=== PATIENT | female | born 1955 | race Caucasian/White ===

== ENCOUNTER 2022-11-11 11:20 | Inpatient (IN) | payer MEDICARE, MEDICAID, SELFPAY ==
[2022-11-11] VITALS (26 sets, daily range): BP systolic 138–203; BP diastolic 70–118; PULSE 90–109; RESP 14–20; TEMP 36.4–36.9; O2SAT 94–99; BMI 18.6
--- NOTE | ~2022-11-11 | XR_ITS ---
EXAMINATION: XR chest 1V portable DATE: 11/11/2022 12:26 INDICATION: Weakness. Dizziness. TECHNIQUE: A single frontal view of the chest was obtained. COMPARISON: None. FINDINGS: The chest demonstrates clear lungs without pneumonia, pleural effusion, or pneumothorax. Th e heart size is normal. IMPRESSION: 1. No acute cardiopulmonary disease. Reviewed, dictated and finalized at location A. NG ERECTOR
--- NOTE | ~2022-11-11 | CT_ITS ---
EXAMINATION: CTA brain carotid DATE: 11/11/2022 17:40 INDICATION: dizziness TECHNIQUE: Computed tomographic angiography (CTA) of the head was performed without and with 100 mL O mnipaque-350 intravenous contrast. CTA of the neck was performed with intravenous contrast. Automated exposure control and iterative reconstruction technique were employed. The dose-length product was 1 585.16 mGy-cm. Maximum intensity projection and volume rendered 3D-reconstructions were created by dominique sarkar technologist on a separate workstation. COMPARISON: None. FINDINGS: CT BRAIN: No acute large vessel infarct, intracranial hemorrhage, mass, or hydrocephalus. Mild atrophy and tub rider renetta white matter change. Atherosclerotic intracranial calcification. CTA HEAD: No large vessel occlusion, aneurysm, high flow vascular malformation, nidus or extravasation. The ant erior and posterior communicating arteries are patent. Short segment mild stenosis in the intradural portion of the distal left vertebral artery. Patent cerebral veins. Symmetric parenchymal enhancement . CTA NECK: Aortic arch and proximal great vessels: Mild atherosclerotic calcifications at the visualized aortic arch and proximal great vessels. Right common carotid, carotid bifurcation, and internal carotid artery: Mild calcified plaque at the bifurcation.There is 0% stenosis of the proximal right internal carotid artery relative to normal dis kul[place] artery lumen diameter (NASCET criteria). Left common carotid, carotid bifurcation, and internal carotid artery: Mild calcified plaque at the b ifurcation.There is 0% stenosis of the proximal left internal carotid artery relative to normal dista l artery lumen diameter (NASCET criteria). Vertebral arteries: No significant plaque or stenosis. Direct origin of the left vertebral artery off the aortic arch, which is obscured by beam hardening artifact and not evaluated. Right vertebral art woody is dominant. Other findings: Multiple thyroid nodules. Biapical pleural scarring. Degenerative changes in the cerv ical spine. IMPRESSION: 1. No large vessel occlusion. 2. No severe carotid or vertebral artery stenosis, noting the origin of the left vertebral artery is obscured. 3. Multiple thyroid nodules, recommend nonemergent, outpatient thyroid ultrasound for further charact erization. Reviewed, dictated and finalized at location K. EL MANAGER IMPRESSION: 1. No large vessel occlusion. 2. No severe carotid or vertebral artery stenosis, noting the origin of the lef t vertebral artery is obscured. 3. Multiple thyroid nodules, recommend nonemergent, outpatient thyroid ultrasou nd for further characterization.
--- NOTE | ~2022-11-11 | US_ITS ---
US renal BI 11/11/2022 23:43 Procedure: Realtime transabdominal ultrasound of the kidneys and bladder. Indication: History of kidney surgery. Kidney nodules. Comparison: No prior studies for comparison. Findings: Renal echotexture is normal bilaterally without hydronephrosis, contour deforming mass or r enal calculus. Left kidney has an atypical appearance, although there is no mass or hydronephrosis. T he right kidney measures 10.6 cm and left kidney measures 7.6 cm. Bladder within normal limits. Ther e is hepatic steatosis. Impression: 1: Unremarkable renal ultrasound. No stones, masses or hydronephrosis. Reviewed, dictated and finalized at location A. SALES REPRESENTATIVE Impression: 1: Unremarkable renal ultrasound. No stones, masses or hydronephrosis.
--- NOTE | ~2022-11-11 | US_ITS ---
EXAMINATION: US thyroid DATE: 11/11/2022 23:43 INDICATION: Thyroid nodules. TECHNIQUE: Multiple ultrasound images of the thyroid were obtained. COMPARISON: Neck CTA 11/11/2022 FINDINGS: The right thyroid lobe measures 5.0 x 3.7 x 2.1 cm. The left thyroid lobe measures 4.5 x 1.4 x 1.3 c m. In the left thyroid lobe, there is an 11 mm solid, hyperechoic, wider than tall nodule with hillary h margin without echogenic foci (TI-RADS TR3). There are ill-defined nodules of similar ultrasound ap pearance throughout the right thyroid lobe and thyroid isthmus without normal intervening parenchyma. IMPRESSION: 1. Multinodular goiter, likely not clinically significant. Reviewed, dictated and finalized at location A. COMMUNITY MANAGER
--- NOTE | 2022-11-11 11:34 | ECG_ITS ---
Measurements Intervals [place] Rate: 103 P: 76 MS: 138 QRS: 48 QRSD: 81 T: 79 QT: 345 QTc: 454 Interpretive Statements SINUS TACHYCARDIA POSSIBLE LEFT ATRIAL ENLARGEMENT [-0.1mV P-WAVE IN V1/V2] LOW QRS VOLTAGE IN PRECORDIAL LEADS [QRS DEFLECTION < 1.0 mV IN CHEST LEADS] NONSPECIFIC ST AND T-WAVE ABNORMALITY ABNORMAL RHYTHM ECG NO PREVIOUS ECG AVAILABLE FOR COMPARISON Electronically Signed On 11-11-2022 16:24:33 NUCLEAR SUPERVISING OPERATOR by Megan Grace M.D.
[2022-11-11 12:13] LABS: Basophils Absolute Auto 0.1 K/mm3 (0.0-0.1); Basophils Percent Auto 0.9 % (0.2-1.2); Eosinophils Absolute Auto 0.2 K/mm3 (0-0.3); Eosinophils Percent Auto 1.7 % (0-4.4); Hematocrit 40.4 % (37.0-47.0); Hemoglobin 14.1 g/dL (12.0-15.0); Immature Granulocyte Absolute 0.04 K/mm3 (0.00-0.031); Immature Granulocyte Percent A 0.3 % (0-0.5); Lymphocytes Absolute Auto 4.05 K/mm3 (0.9-3.2); Lymphocytes Percent Auto 32.5 % (18.3-44.2); Mean Corpuscular HGB Conc 34.9 g/dl (32-36); Mean Corpuscular Hemoglobin 30.4 pg (26-34); Mean Corpuscular Volume 87.1 fl (80-100); Monocytes Absolute Auto 1.1 K/mm3 (0.1-0.6); Monocytes Percent Auto 8.6 % (2.6-8.5); Platelet Count Result 385 k/mm3 (150-375); Red Blood Count 4.64 M/mm3 (4.2-5.4); Red Cell Distribution Width 12.8 % (11.5-14.5); White Blood Count 12.5 K/mm3 (4.5-10.0)
[2022-11-11 12:25] LABS: Alanine Aminotransferase 22 U/L (6-35); Albumin Level 4.2 g/dL (3.5-5.1); Alkaline Phosphatase 96 U/L (38-126); Anion Gap 7 mmol/L (8-16); Aspartate Amino Transferase 19 U/L (14-36); Bilirubin,Total 0.4 mg/dL (0.2-1.3); Blood Urea Nitrogen 16 mg/dL (7-17); Calcium 8.5 mg/dL (8.4-10.2); Carbon Dioxide 28 mmol/L (22-30); Chloride 98 mmol/L (98-107); Estimated CRCL calculation 66 ml/min; Estimated Glomerular Filt Rate > 60; Glucose 244 mg/dL (65-110); Potassium 3.5 mmol/L (3.4-5.0); Sodium 133 mmol/L (137-145)
[2022-11-11] MEDS: MORPHINE SULFATE (*CRX) 2 MG/ML INJ IV PUSH (12:53)
[2022-11-11 12:55] LABS: INR 1.1; Prothrombin Time 13.3 Seconds (11.1-14.7)
[2022-11-11 12:56] LABS: Partial Thromboplastin Time 32.4 SECONDS (22.3-36.8)
[2022-11-11 13:03] LABS: Appearance Urine Clear (Clear); Bilirubin Urine Negative (Negative); Blood Urine Trace-intact (Negative); Color Urine Yellow (Yellow); Glucose Urine UA Trace mg/dL (Negative); Ketones Urine Negative (Negative); Leukocyte Esterase Ur 1+ LEU/UL (Negative); Nitrate Urine Negative (Negative); Protein Urine 1+ mg/dL (Negative); Specific Grav Ur 1.015 (1.001-1.035); pH Urine 5.5 (5.0-9.0)
[2022-11-11 13:06] LABS: Troponin I < 0.012 ng/mL (0.000-0.034)
[2022-11-11 13:07] LABS: Mucus Urine Rare /lpf; RBC Urine 0-2 /hpf (0-2); WBC Urine 16-20 /hpf
[2022-11-11 13:15] LABS: Add Urine Microscopic? YES
[2022-11-11 13:15] LABS: Influenza A QL RT-PCR Negative (Negative); Influenza B QL RT-PCR Negative (Negative); SARS-CoV-2 RNA PCR Negative
--- NOTE | 2022-11-11 14:21 | ED.GENADULT ---
HPI - General Adult General Chief complaint: Dizziness Stated complaint: dizzy lightheaded, pain to upper back & arms Time Seen by Provider: 11/11/22 11:58 History of Present Illness HPI narrative: Patient is a 67-year-old female who presents ER with multiple complaints. Patient is blind and dependent on home health for her care. She has been having newly elevated blood pressures over the last couple of days. Has been associated with back pain and arm pain. No chest discomfort. No difficulty breathing. She is also had some lightheadedness and dizziness. She has some discomfort in her left ear and she has been trying to clean wax out of it. Denies fevers or chills or sweats. No loss of consciousness. No falls. Patient is not on any blood pressure medication at home. She is unsure what her blood sugars have been running as her home health care does not know how to use her glucometer and she is unable to read it. Pain in the back and arms is achy. Is not associate with exertion. It is not a typical pain for her. Usually her chronic pain is in her low back and legs. She has had no relief with oral [id number]-ootdtuz pain relievers. Related Data Home Medications Medication Instructions Recorded Confirmed clopidogrel 75 mg tablet 75 mg PO DAILY 11/11/22 11/11/22 docusate sodium 100 mg capsule 100 mg PO DAILY 11/11/22 11/11/22 metformin 500 mg tablet 500 mg PO BID 11/11/22 11/11/22 omeprazole 20 mg capsule,delayed 20 mg PO BID 11/11/22 11/11/22 release pravastatin 40 mg tablet See Rx Instructions .Route .COMPLEX 11/11/22 11/11/22 Allergies Allergy/AdvReac Type Severity Reaction Status Date / Time strawberry Allergy Unknown Verified 11/11/22 11:36 tramadol Allergy Unknown Verified 11/11/22 11:36 Review of Systems Review of Systems: All systems reviewed & are unremarkable except as noted in HPI and below Constitutional: Constitutional: Denies chills, Denies fatigue and Denies fever(s) ENT: Reports dizziness, Denies nasal congestion and Denies sore throat Comments: Left ear fullness Cardiovascular: Cardiovascular: Denies chest pain, Denies rapid heart rate and Denies radiating jaw, neck or arm pain Respiratory: Respiratory: Denies cough and Denies dyspnea Gastrointestinal: Gastrointestinal: Denies abdominal pain, Denies nausea and Denies vomiting Musculoskeletal: Musculoskeletal: Reports back pain Comments: Arm pain PMFSH Past Medical History Medical History (Updated 11/11/22 @ 21:57 by Zachary Esteban MD) Anxiety Blind Cataract DM2 (diabetes mellitus, type 2) H/O irritable bowel syndrome mixed HTN (hypertension) with goal to be determined Hx of deep venous thrombosis Kidney tumor Seizures TIA (transient ischemic attack) Tobacco abuse Surgical History Surgical History (Updated 11/11/22 @ 16:59 by Elsie Blum NP) H/O colonoscopy with polypectomy History of kidney surgery Family History Family History (Updated 11/11/22 @ 17:01 by Elsie Blum NP) Mother Hypertension Diabetes mellitus Acute myocardial infarction Father Acute myocardial infarction Kidney malignancy Son Acute myocardial infarction Diabetes mellitus Heart disease Daughter Deaf Social History Social History (Updated 11/11/22 @ 20:59 by Elsie Blum NP) Social History: 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 She is and has 2 children. She is Diabled. She continues to smoke approximately half a pack a cigarettes a day. Code status full code Smoking packs per day: 0.5 Smoking cigarettes per day: 10.0 Years smoked: 15 Smoking pack-years: 7.50 Smoking status: Light tobacco smoker Tobacco type: cigarettes Second hand tobacco smoke exposure: No Alcohol intake: never Substance use: never Lack of Transportation: No Lack of Food: Never True Current Housing: I Have Housing Concerned About Future Housing: No Difficulty Paying Gas/Electric Bi
[2022-11-11] MEDS: hydrALAZINE HCL 20 MG/ML VIAL 10 MG IV PUSH (14:28)
[2022-11-11] MEDS: fentaNYL CITRATE INJ (*CRX) 100 MCG/2 ML VIAL 50 MCG IV PUSH ×2 (15:16→22:54)
--- NOTE | 2022-11-11 16:19 | PC.NURSE ---
Dinner order placed for patient
--- NOTE | 2022-11-11 16:47 | PM.IMHP ---
H&P: [facility] History of Present Illness Date/Time: 11/11/22 16:47 Chief Complaint: Dizziness Narrative: This is a 67-year-old female patient who stated that she used to have hypertension and no longer is on any medication. The patient is legally blind and stated that she is supposed to have her cataracts removed but cannot had the Imuran move due to her elevated blood pressure. The patient is dependent on home health 7 days a week for several hours a day. The daughter is at the bedside who is deaf and is helping with the patient. The patient has been having elevated blood pressure over the last couple weeks. The patient has also been having some back pain and arm pain which may be the cause of her elevated blood pressure. The patient has some lightheadedness and dizziness. However I did help ambulate her to the bathroom without difficulty. Patient is not been on any blood pressure medication at home. The patient does not remember the name of her home medication that she used to be on for blood pressure. The patient has not been able to check her blood sugars because the home health care was not able to operate her glucometer. Patient has been complaining of achiness. This is her usual chronic pain. In her lower back and legs. The patient has had no relief with mshn-cbr-nbzembm pain medication. Her initial blood pressure was 192/99 and went up to 203/116. The patient stated that she is legally blind due to her cataracts. The patient was given morphine, hydralazine, fentanyl and she was started on Rocephin for UTI. Her white count is 12.5. And sodium is 133. Glucose was 221. Urine HEENT reveals 1+ leukocyte esterase and 16-20 wbc's. The patient was negative for influenza A/B and COVID. Head neck CTA was read as the followingNo large vessel occlusion. 2. No severe carotid or vertebral artery stenosis, noting the origin of the left vertebral artery is obscured. 3. Multiple thyroid nodules, recommend nonemergent, outpatient thyroid ultrasound for further characterization. Chest x-ray was read as no acute cardiopulmonary disease. The patient is being admitted to observation status on the date of service of 11/11/2022. Review of Systems Review of Systems: See [facility] Past Medical History Medical History (Updated 11/11/22 @ 21:09 by Elsie A. Benhoff, ORTHO/PROSTHETIC AIDE) Anxiety Blind Cataract DM2 (diabetes mellitus, type 2) H/O irritable bowel syndrome mixed HTN (hypertension) with goal to be determined Hx of deep venous thrombosis Kidney tumor Seizures TIA (transient ischemic attack) Tobacco abuse Surgical History Surgical History (Updated 11/11/22 @ 16:59 by Elsie Blum NP) H/O colonoscopy with polypectomy History of kidney surgery Family History Family History (Updated 11/11/22 @ 17:01 by Elsie Blum NP) Mother Hypertension Diabetes mellitus Acute myocardial infarction Father Acute myocardial infarction Kidney malignancy Son Acute myocardial infarction Diabetes mellitus Heart disease Daughter Deaf Social History Social History (Updated 11/11/22 @ 20:59 by Elsie Blum NP) Social History: 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 She is and has 2 children. She is Diabled. She continues to smoke approximately half a pack a cigarettes a day. Code status full code Smoking packs per day: 0.5 Smoking cigarettes per day: 10.0 Years smoked: 15 Smoking pack-years: 7.50 Smoking status: Light tobacco smoker Tobacco type: cigarettes Second hand tobacco smoke exposure: No Alcohol intake: never Substance use: never Lack of Transportation: No Lack of Food: Never True Current Housing: I Have Housing Concerned About Future Housing: No Difficulty Paying Gas/Electric Bills: No Difficulty Paying for Meds: No Currently Unemployed: No Education: Decline to Answer Difficulty w/ Childcare or Family Care: No Spiritual care concerns: No Meds
[2022-11-11] MEDS: ONDANSETRON INJ 4 MG/2 ML VIAL IV PUSH ×2 (17:10→22:56)
--- NOTE | 2022-11-11 17:18 | PC.NURSE ---
Pt to CT
--- NOTE | 2022-11-11 17:59 | ADMGEN ---
Addendum entered by Su Lamb RN 11/11/22 18:14: pt is BLIND Original Note: This patient, Caitlyn Davis, was admitted to IMU Room 209-01 from ER. pt vomiting upon arrival to floor- clear emesis. Patient/ oriented to hospital policies and general routines including ID bracelet, bed and alarms, visiting hours, pain management, procedures, bathroom and other care routines, personal items, smoking policy, room service/diet, and visiting hours. Information on how to activate the Rapid Response Team has been discussed. Patient/are encouraged to report perceived risks to care and to ask questions if they do not understand what they are told or what they should do.
[2022-11-11 20:03] LABS: Glucose Point of Care 221 mg/dl (65-105)
[2022-11-11] MEDS: PANTOPRAZOLE 40 MG TABLET PO (22:57)
[2022-11-11] MEDS: PRAVASTATIN SODIUM 20 MG TABLET 40 MG BY MOUTH (22:57)
[2022-11-12] VITALS (13 sets, daily range): BP systolic 111–156; BP diastolic 50–82; PULSE 92–116; RESP 14–20; TEMP 36.5–36.9; O2SAT 94–99
--- NOTE | 2022-11-12 | ECHO_ITS ---
Patient Info Name: Caitlyn Davis Age: 67 years : 1955 Gender: Female Ht: 67 in Wt: 141 lbs BSA: 1.74 m2 HR: 90 bpm BP: 134 / 66 mmHg Heart Rhythm: Sinus Rhythm Technical Quality: Poor Exam Date: 11/12/2022 12:44 PM Exam Location: [facility] Patient Status: Outpatient Admit Date: 11/11/2022 Staff Ordering Physician: Elsie Blum NP Leather Stamper: Mariam Suh RDCS Attending Provider: Kisha Hanna DO Referring Physician: Viktoria DUARTE; Exam Type: CA echo doppler w bubble study Study Info Indications - dizziness Complete two-dimensional, color flow and Doppler transthoracic echocardiogram is performed with agitated saline. Contrast/Agitated Saline Contrast/Ag. Saline: Agitated Saline Amount: 30.00 ml Administered By: Mariam Suh RDCS Existing IV Access: Yes IV Access Condition: patent with no signs of infiltration Summary 1. Left ventricular chamber dimension is normal. 2. Left ventricular systolic function is hyperdynamic, estimated at >70%. 3. Right ventricular systolic function is normal. 4. There is trace mitral valve regurgitation. 5. There is trace tricuspid valve regurgitation. 6. Normal inferior vena cava with <50% collapse upon inspiration consistent with normal right atrial pressure, 3 mmHg. Left Ventricle Left ventricular chamber dimension is normal. Left ventricular systolic function is hyperdynamic, estimated at >70%. There is no increased left ventricular wall thickness. Right Ventricle Right ventricular chamber dimension is normal. Right ventricular systolic function is normal. Left Atria Left atrial chamber dimension is normal. Right Atria Right atrial chamber dimension is normal. Atrial Septum Intact interatrial septum visualized by color flow and agitated saline imaging. Aortic Valve The aortic valve is not well visualized. There is no aortic valve stenosis. There is no aortic valve regurgitation. Pulmonic Valve The pulmonic valve is not well visualized. Mitral Valve There is trace mitral valve regurgitation. Tricuspid Valve There is trace tricuspid valve regurgitation. Pericardium/Pleural The pericardium appears epicardial fat pad. There is no pericardial effusion. Inferior Vena Cava Normal inferior vena cava with <50% collapse upon inspiration consistent with normal right atrial pressure, 3 mmHg. Aorta The aortic root size at the sinus of Valsalva is normal. Left Ventricular Outflow Tract Name Value Normal LVOT 2D LVOT Diameter 2.0 cm LVOT Doppler LVOT Peak Gradient 3 mmHg LVOT Mean Gradient 2 mmHg LVOT VTI 17 cm LVOT VTI/AV VTI Ratio 0.9 LVOT Stroke Volume 51 ml LVOT CO 4.8 l/min LVOT CI 2.8 l/min/m2 Pulmonic Valve Name
[2022-11-12] MEDS: LORazepam INJ (*CRX) 2 MG/ML VIAL 0.5 MG IV PUSH (03:50)
[2022-11-12 05:04] LABS: Basophils Absolute Auto 0.1 K/mm3 (0.0-0.1); Basophils Percent Auto 0.5 % (0.2-1.2); Eosinophils Percent Auto 0.1 % (0-4.4); Hematocrit 36.4 % (37.0-47.0); Hemoglobin 12.5 g/dL (12.0-15.0); Immature Granulocyte Absolute 0.07 K/mm3 (0.00-0.031); Immature Granulocyte Percent A 0.4 % (0-0.5); Lymphocytes Absolute Auto 2.13 K/mm3 (0.9-3.2); Lymphocytes Percent Auto 12.4 % (18.3-44.2); Mean Corpuscular HGB Conc 34.3 g/dl (32-36); Mean Corpuscular Hemoglobin 29.9 pg (26-34); Mean Corpuscular Volume 87.1 fl (80-100); Mean Platelet Volume 9.1 fl (7.4-10.4); Monocytes Percent Auto 5.9 % (2.6-8.5); Neutrophils Absolute Auto 13.8 K/mm3 (1.3-6.7); Neutrophils Percent Auto 80.7 % (45.5-73.1); Platelet Count Result 378 k/mm3 (150-375); Red Blood Count 4.18 M/mm3 (4.2-5.4); Red Cell Distribution Width 13.1 % (11.5-14.5); White Blood Count 17.1 K/mm3 (4.5-10.0)
[2022-11-12 05:13] LABS: Alanine Aminotransferase 18 U/L (6-35); Albumin Level 3.9 g/dL (3.5-5.1); Alkaline Phosphatase 83 U/L (38-126); Anion Gap 6 mmol/L (8-16); Aspartate Amino Transferase 18 U/L (14-36); Bilirubin,Total 0.5 mg/dL (0.2-1.3); Blood Urea Nitrogen 21 mg/dL (7-17); Calcium 8.2 mg/dL (8.4-10.2); Carbon Dioxide 31 mmol/L (22-30); Chloride 96 mmol/L (98-107); Estimated CRCL calculation 58 ml/min; Estimated Glomerular Filt Rate > 60; Glucose 199 mg/dL (65-110); Magnesium 1.2 mg/dL (1.6-2.3); Potassium 3.4 mmol/L (3.4-5.0); Sodium 133 mmol/L (137-145)
[2022-11-12 05:16] LABS: Lactic Acid Reflex 1.2 mmol/L (0.7-2.0)
[2022-11-12 05:19] LABS: Hemoglobin A1C 7.2 % (<5.7)
[2022-11-12 06:15] LABS: Thyroid Stimulating Hormone Reflex 0.295 uIU/mL (0.465-4.68)
[2022-11-12 07:38] LABS: Free T4 Free Thyroxine Reflex 1.26 ng/dL (0.78-2.19)
[2022-11-12 08:03] LABS: Glucose Point of Care 199 mg/dl (65-105)
[2022-11-12 08:27] LABS: Total Triiodothyronine (T3) 0.97 NG/ML (0.97-1.69)
[2022-11-12] MEDS: PANTOPRAZOLE 40 MG TABLET PO ×2 (08:51→21:24)
[2022-11-12] MEDS: lisinopriL 10 MG TABLET PO (08:52)
[2022-11-12] MEDS: DOCUSATE SODIUM 100 MG CAPSULE PO (08:52)
[2022-11-12] MEDS: CLOPIDOGREL BISULFATE 75 MG TABLET PO (08:52)
[2022-11-12] MEDS: ACETAMINOPHEN/ASPIRIN/CAFFEINE 250-250-65 MG TABLET 1 TABLET PO (11:49)
[2022-11-12 12:42] LABS: Glucose Point of Care 234 mg/dl (65-105)
[2022-11-12] MEDS: HYDROcodone/acetaminophen (*CRX) 5-325 MG TABLET 1 TAB PO ×2 (15:23→21:23)
--- NOTE | 2022-11-12 15:42 | PM.IMPN ---
Progress Note: A&P Assessment and Plan (1) Dizziness: Code(s): R42 - Dizziness and giddiness Status: Acute Assessment and Plan: Head neck CTA shows no large vessel occlusion. No severe carotid or vertebral artery stenosis noting the origin of left vertebral artery is obscured. P.r.n. meclizine I did ambulate the patient and she seemed to do well although she is legally blind she needed much assistance and guidance. -check orthostatic blood pressures Q shift. 11/12/2022 interval history: patient is legally blind in both eyes, and hard of hearing, patient davide who is present has also difficulty hearing however she can read lips, upon arrival patient BP was elevated and c/o body aches and generalized pain, unfortunately patient unable to provide detailed review of symptoms or history, presented with complaint of dizziness, CTA of head and carotid ultrasound are negative for any stenosis, patient urine is suspicious for UTI patient is being treated with ceftriaxone, will PT OT evaluate the patient. (2) Thyroid nodule: Code(s): E04.1 - Nontoxic single thyroid nodule Status: Acute Assessment and Plan: -ultrasound of the thyroid has been ordered. (3) HTN (hypertension) with goal to be determined: Code(s): I10 - Essential (primary) hypertension Status: Acute Assessment and Plan: The patient stated that she had been on hypertensive medication in the past and cannot recall the name of it. -I did start the patient on lisinopril as her renal functions are within normal limits. -she has p.r.n. hydralazine as well. The patient's blood pressure did come down nicely today with the hydralazine. (4) Seizures: Code(s): R56.9 - Unspecified convulsions Status: Acute Assessment and Plan: The patient is not currently on any seizure medication. Patient stated that she did have a seizure 1 time. (5) Cataract: Code(s): H26.9 - Unspecified cataract Status: Acute Assessment and Plan: The patient is legally blind due to her cataracts. The patient stated that she cannot have the removed until her blood pressure comes down. (6) TIA (transient ischemic attack): Code(s): G45.9 - Transient cerebral ischemic attack, unspecified Status: Acute Assessment and Plan: Continue with her Plavix. (7) DM2 (diabetes mellitus, type 2): Code(s): E11.9 - Type 2 diabetes mellitus without complications Status: Acute Assessment and Plan: I am holding metformin at this time. -check A1c -Accu-Cheks AC and HS with sliding scale insulin and hypoglycemic protocol. (8) Tobacco abuse: Code(s): Z72.0 - Tobacco use Status: Acute Assessment and Plan: We discussed smoking cessation for approximately 5 minutes. I did offer her nicotine patch which she declined at this time. (9) Anxiety: Code(s): F41.9 - Anxiety disorder, unspecified Status: Acute Assessment and Plan: -the patient stated that she is anxious at times. She was ordered IV Ativan. (10) Kidney tumor: Code(s): D49.519 - Neoplasm of unspecified behavior of unspecified kidney Status: Acute Assessment and Plan: The patient has a history of having surgery to remove a portion of her kidney. The patient has nodules on the left side of her lower back. (11) UTI (urinary tract infection): Code(s): N39.0 - Urinary tract infection, site not specified Status: Acute Assessment and Plan: The patient was started on Rocephin. -blood and urine cultures are pending -tailor antibiotics to results of cultures. (12) Blind: Code(s): H54.7 - Unspecified visual loss Status: Acute Assessment and Plan: The patient stated that she is legally blind due to the cataracts. Plan The patient has chronic lower back pain. Subjective Date/time seen: 11/12/22 15:42 Dizziness HPI-Narrative: This is a
[2022-11-12] MEDS: INSULIN ASPART (*BKC) 100 UNITS/ML SUB-Q (16:51)
[2022-11-12 16:53] LABS: Glucose Point of Care 234 mg/dl (65-105)
[2022-11-12] MEDS: PRAVASTATIN SODIUM 20 MG TABLET 40 MG BY MOUTH (17:02)
--- NOTE | 2022-11-12 18:19 | PC.NURSE ---
Transferred to room 241 vi abed accomapnied by staff- belongings with pt -report given to Alec RN- daughter danna called and notified of transfer
[2022-11-12 22:33] LABS: Glucose Point of Care 202 mg/dl (65-105)
[2022-11-13] MEDS: HYDROcodone/acetaminophen (*CRX) 5-325 MG TABLET 1 TAB PO ×4 (05:55→20:30)
[2022-11-13 06:00] VITALS: BP 133/67; PULSE 88; RESP 18; TEMP 36.2; O2SAT 96
[2022-11-13] MEDS: ONDANSETRON INJ 4 MG/2 ML VIAL IV PUSH (06:03)
[2022-11-13 06:05] VITALS: BP 119/60; PULSE 91; RESP 20; TEMP 36.1; O2SAT 99
[2022-11-13 06:12] LABS: Basophils Absolute Auto 0.1 K/mm3 (0.0-0.1); Basophils Percent Auto 0.7 % (0.2-1.2); Eosinophils Absolute Auto 0.2 K/mm3 (0-0.3); Eosinophils Percent Auto 1.8 % (0-4.4); Hematocrit 33.3 % (37.0-47.0); Hemoglobin 11.2 g/dL (12.0-15.0); Immature Granulocyte Absolute 0.04 K/mm3 (0.00-0.031); Immature Granulocyte Percent A 0.3 % (0-0.5); Lymphocytes Absolute Auto 5.47 K/mm3 (0.9-3.2); Lymphocytes Percent Auto 44.4 % (18.3-44.2); Mean Corpuscular HGB Conc 33.6 g/dl (32-36); Mean Corpuscular Hemoglobin 29.7 pg (26-34); Mean Corpuscular Volume 88.3 fl (80-100); Mean Platelet Volume 9.1 fl (7.4-10.4); Monocytes Absolute Auto 0.9 K/mm3 (0.1-0.6); Monocytes Percent Auto 7.4 % (2.6-8.5); Neutrophils Absolute Auto 5.6 K/mm3 (1.3-6.7); Neutrophils Percent Auto 45.4 % (45.5-73.1); Platelet Count Result 383 k/mm3 (150-375); Red Blood Count 3.77 M/mm3 (4.2-5.4); Red Cell Distribution Width 12.8 % (11.5-14.5); White Blood Count 12.3 K/mm3 (4.5-10.0)
[2022-11-13 06:21] LABS: Potassium 3.3 mmol/L (3.4-5.0)
[2022-11-13 06:25] LABS: Anion Gap 2 mmol/L (8-16); Blood Urea Nitrogen 21 mg/dL (7-17); Carbon Dioxide 32 mmol/L (22-30); Chloride 97 mmol/L (98-107); Estimated CRCL calculation 46 ml/min; Estimated Glomerular Filt Rate > 60; Glucose 166 mg/dL (65-110); Magnesium 1.5 mg/dL (1.6-2.3); Sodium 131 mmol/L (137-145)
[2022-11-13] MEDS: CLOPIDOGREL BISULFATE 75 MG TABLET PO (08:17)
[2022-11-13] MEDS: DOCUSATE SODIUM 100 MG CAPSULE PO (08:17)
[2022-11-13] MEDS: PANTOPRAZOLE 40 MG TABLET PO ×2 (08:17→20:31)
[2022-11-13] MEDS: lisinopriL 10 MG TABLET PO (08:17)
[2022-11-13 08:39] LABS: Glucose Point of Care 187 mg/dl (65-105)
[2022-11-13] MEDS: MAGNESIUM OXIDE 400 MG TABLET PO (10:45)
[2022-11-13] MEDS: MAGNESIUM SULF 2 GM/WATER 50ML 2 GM/50 ML BAG IVPB (10:45)
[2022-11-13] MEDS: POTASSIUM CHLORIDE 20 MEQ PACKET (FOR LIQUID) 40 MEQ PO (10:45)
[2022-11-13] MEDS: INSULIN ASPART (*BKC) 100 UNITS/ML SUB-Q ×2 (12:32→17:13)
[2022-11-13 12:33] LABS: Glucose Point of Care 289 mg/dl (65-105)
--- NOTE | 2022-11-13 13:34 | PM.IMPN ---
Progress Note: A&P Assessment and Plan (1) Dizziness: Code(s): R42 - Dizziness and giddiness Status: Acute Assessment and Plan: Head neck CTA shows no large vessel occlusion. No severe carotid or vertebral artery stenosis noting the origin of left vertebral artery is obscured. P.r.n. meclizine I did ambulate the patient and she seemed to do well although she is legally blind she needed much assistance and guidance. -check orthostatic blood pressures Q shift. 11/13/2022 interval history: patient is legally blind in both eyes, and hard of hearing, patient davide who is present has also difficulty hearing however she can read lips, upon arrival patient BP was elevated and c/o body aches and generalized pain, unfortunately patient unable to provide detailed review of symptoms or history, However her blood pressure is close to normal and patient does not take any med, most likely stress related, upon arrival presented with complaint of dizziness, CTA of head and carotid ultrasound are negative for any stenosis, there was concern for thyroid nodule, patient had thyroid ultrasound which is benign, patient with history of diabetes her hemoglobin A1c is 7.2, patient urine is suspicious for UTI urine culture is growing Gram-negative bacilli, patient is being treated with ceftriaxone, will follow-up on identification and sensitivity, will PT OT evaluate the patient. (2) Thyroid nodule: Code(s): E04.1 - Nontoxic single thyroid nodule Status: Acute Assessment and Plan: -ultrasound of the thyroid has been ordered. (3) HTN (hypertension) with goal to be determined: Code(s): I10 - Essential (primary) hypertension Status: Acute Assessment and Plan: The patient stated that she had been on hypertensive medication in the past and cannot recall the name of it. -I did start the patient on lisinopril as her renal functions are within normal limits. -she has p.r.n. hydralazine as well. The patient's blood pressure did come down nicely today with the hydralazine. (4) Seizures: Code(s): R56.9 - Unspecified convulsions Status: Acute Assessment and Plan: The patient is not currently on any seizure medication. Patient stated that she did have a seizure 1 time. (5) Cataract: Code(s): H26.9 - Unspecified cataract Status: Acute Assessment and Plan: The patient is legally blind due to her cataracts. The patient stated that she cannot have the removed until her blood pressure comes down. (6) TIA (transient ischemic attack): Code(s): G45.9 - Transient cerebral ischemic attack, unspecified Status: Acute Assessment and Plan: Continue with her Plavix. (7) DM2 (diabetes mellitus, type 2): Code(s): E11.9 - Type 2 diabetes mellitus without complications Status: Acute Assessment and Plan: I am holding metformin at this time. -check A1c -Accu-Cheks AC and HS with sliding scale insulin and hypoglycemic protocol. (8) Tobacco abuse: Code(s): Z72.0 - Tobacco use Status: Acute Assessment and Plan: We discussed smoking cessation for approximately 5 minutes. I did offer her nicotine patch which she declined at this time. (9) Anxiety: Code(s): F41.9 - Anxiety disorder, unspecified Status: Acute Assessment and Plan: -the patient stated that she is anxious at times. She was ordered IV Ativan. (10) Kidney tumor: Code(s): D49.519 - Neoplasm of unspecified behavior of unspecified kidney Status: Acute Assessment and Plan: The patient has a history of having surgery to remove a portion of her kidney. The patient has nodules on the left side of her lower back. (11) UTI (urinary tract infection): Code(s): N39.0 - Urinary tract infection, site not specified Status: Acute Assessment and Plan: The patient was started on Rocephin. -blood and urine cultures are p
[2022-11-13 14:05] VITALS: BP 120/53; PULSE 83; RESP 18; TEMP 36.7; O2SAT 97
[2022-11-13] MEDS: PRAVASTATIN SODIUM 20 MG TABLET 40 MG BY MOUTH (17:01)
[2022-11-13 17:16] LABS: Glucose Point of Care 225 mg/dl (65-105)
[2022-11-13 21:50] VITALS: BP 149/75; PULSE 86; RESP 18; TEMP 36.2; O2SAT 95
[2022-11-14 00:26] LABS: Glucose Point of Care 185 mg/dl (65-105)
[2022-11-14] MEDS: HYDROcodone/acetaminophen (*CRX) 5-325 MG TABLET 1 TAB PO ×2 (04:45→11:17)
[2022-11-14 05:55] LABS: Basophils Absolute Auto 0.1 K/mm3 (0.0-0.1); Basophils Percent Auto 0.8 % (0.2-1.2); Eosinophils Absolute Auto 0.3 K/mm3 (0-0.3); Eosinophils Percent Auto 2.3 % (0-4.4); Hematocrit 36.7 % (37.0-47.0); Hemoglobin 12.4 g/dL (12.0-15.0); Immature Granulocyte Absolute 0.04 K/mm3 (0.00-0.031); Immature Granulocyte Percent A 0.4 % (0-0.5); Lymphocytes Absolute Auto 4.36 K/mm3 (0.9-3.2); Lymphocytes Percent Auto 38.6 % (18.3-44.2); Mean Corpuscular HGB Conc 33.8 g/dl (32-36); Mean Corpuscular Hemoglobin 30.7 pg (26-34); Mean Corpuscular Volume 90.8 fl (80-100); Monocytes Absolute Auto 0.9 K/mm3 (0.1-0.6); Neutrophils Absolute Auto 5.7 K/mm3 (1.3-6.7); Neutrophils Percent Auto 49.9 % (45.5-73.1); Platelet Count Result 430 k/mm3 (150-375); Red Blood Count 4.04 M/mm3 (4.2-5.4); Red Cell Distribution Width 12.7 % (11.5-14.5); White Blood Count 11.3 K/mm3 (4.5-10.0)
[2022-11-14 06:00] VITALS: BP 132/63; PULSE 77; RESP 16; TEMP 36.6; O2SAT 93
[2022-11-14 06:04] LABS: Anion Gap 3 mmol/L (8-16); Blood Urea Nitrogen 14 mg/dL (7-17); Calcium 8.7 mg/dL (8.4-10.2); Carbon Dioxide 32 mmol/L (22-30); Chloride 101 mmol/L (98-107); Estimated CRCL calculation 59 ml/min; Estimated Glomerular Filt Rate > 60; Glucose 174 mg/dL (65-110); Magnesium 1.9 mg/dL (1.6-2.3); Potassium 3.7 mmol/L (3.4-5.0); Sodium 136 mmol/L (137-145)
[2022-11-14] MEDS: CLOPIDOGREL BISULFATE 75 MG TABLET PO (08:21)
[2022-11-14] MEDS: DOCUSATE SODIUM 100 MG CAPSULE PO (08:21)
[2022-11-14] MEDS: MAGNESIUM OXIDE 400 MG TABLET PO (08:21)
[2022-11-14] MEDS: PANTOPRAZOLE 40 MG TABLET PO (08:22)
[2022-11-14] MEDS: lisinopriL 10 MG TABLET PO (08:22)
[2022-11-14 08:35] LABS: Glucose Point of Care 187 mg/dl (65-105)
[2022-11-14 12:12] LABS: Glucose Point of Care 179 mg/dl (65-105)
[2022-11-14 14:00] VITALS: BP 135/72; PULSE 86; RESP 18; TEMP 36.7; O2SAT 96
--- NOTE | 2022-11-14 15:03 | P.DS_ITS ---
DS: Admitting Diagnosis Discharge Date 11/14/2022 Admitting Diagnosis dizziness DS: Discharge Diagnosis Discharge Diagnosis (1) Dizziness: Code(s): R42 - Dizziness and giddiness Status: Acute Assessment and Plan: Head neck CTA shows no large vessel occlusion. No severe carotid or vertebral artery stenosis noting the origin of left vertebral artery is obscured. P.r.n. meclizine I did ambulate the patient and she seemed to do well although she is legally blind she needed much assistance and guidance. -check orthostatic blood pressures Q shift. 11/13/2022 interval history: patient is legally blind in both eyes, and hard of hearing, patient davide who is present has also difficulty hearing however she can read lips, upon arrival patient BP was elevated and c/o body aches and generalized pain, unfortunately patient unable to provide detailed review of symptoms or history, However her blood pressure is close to normal and patient does not take any med, most likely stress related, upon arrival presented with complaint of dizziness, CTA of head and carotid ultrasound are negative for any stenosis, there was concern for thyroid nodule, patient had thyroid ultrasound which is benign, patient with history of diabetes her hemoglobin A1c is 7.2, patient urine is suspicious for UTI urine culture is growing Gram-negative bacilli, patient is being treated with ceftriaxone, will follow-up on identification and sensitivity, will PT OT evaluate the patient. (2) Thyroid nodule: Code(s): E04.1 - Nontoxic single thyroid nodule Status: Acute Assessment and Plan: -ultrasound of the thyroid has been ordered. (3) HTN (hypertension) with goal to be determined: Code(s): I10 - Essential (primary) hypertension Status: Acute Assessment and Plan: The patient stated that she had been on hypertensive medication in the past and cannot recall the name of it. -I did start the patient on lisinopril as her renal functions are within normal limits. -she has p.r.n. hydralazine as well. The patient's blood pressure did come down nicely today with the hydralazine. (4) Seizures: Code(s): R56.9 - Unspecified convulsions Status: Acute Assessment and Plan: The patient is not currently on any seizure medication. Patient stated that she did have a seizure 1 time. (5) Cataract: Code(s): H26.9 - Unspecified cataract Status: Acute Assessment and Plan: The patient is legally blind due to her cataracts. The patient stated that she cannot have the removed until her blood pressure comes down. (6) TIA (transient ischemic attack): Code(s): G45.9 - Transient cerebral ischemic attack, unspecified Status: Acute Assessment and Plan: Continue with her Plavix. (7) DM2 (diabetes mellitus, type 2): Code(s): E11.9 - Type 2 diabetes mellitus without complications Status: Acute Assessment and Plan: I am holding metformin at this time. -check A1c -Accu-Cheks AC and HS with sliding scale insulin and hypoglycemic protocol. (8) Tobacco abuse: Code(s): Z72.0 - Tobacco use Status: Acute Assessment and Plan: We discussed smoking cessation for approximately 5 minutes. I did offer her nicotine patch which she declined at this time. (9) Anxiety: Code(s): F41.9 - Anxiety disorder, unspecified Status: Acute Assessment and Plan: -the patient stated that she is anxious at times. She was ordered IV Ativan. (10) Kidney tumor: Code(s): D49.519 - Neoplasm of unspec
--- NOTE | 2022-11-14 15:44 | PC.NURSE ---
Patient was informed during discharge that a repeat BMP should be done in 1 week to check her kidney function due to the introduction of a new blood pressure medication (Lisinopril).
== END 2022-11-14 15:41 | disposition home or self-care (01) | DRG 305 ==
LOC: ANHED 11:58 → ANHIMU 16:57 → ANH2MED 11-12 18:12
PROVIDERS: Emergency Medicine; Nurse Practitioner; Admitting Provider Student in an Organized Health Care Education/Training Program; Emergency Provider Emergency Medicine; Visit Provider Family Medicine
DX: I16.0 Hypertensive urgency (principal); N39.0 Urinary tract infection, site not specified; F43.9 Reaction to severe stress, unspecified; B96.1 Klebsiella pneumoniae [K. pneumoniae] as the cause of diseases classified elsewhere; E04.1 Nontoxic single thyroid nodule; I10 Essential (primary) hypertension; H54.8 Legal blindness, as defined in USA; F41.9 Anxiety disorder, unspecified; E11.9 Type 2 diabetes mellitus without complications; K58.2 Mixed irritable bowel syndrome; D49.519 Neoplasm of unspecified behavior of unspecified kidney; F17.210 Nicotine dependence, cigarettes, uncomplicated; Z20.822 Contact with and (suspected) exposure to COVID-19; H26.9 Unspecified cataract; H91.93 Unspecified hearing loss, bilateral; Z86.73 Personal history of transient ischemic attack (TIA), and cerebral infarction without residual deficits; Z86.718 Personal history of other venous thrombosis and embolism
CPT/HCPCS: 36415; 51701; 70496; 70498; 71045; 76536; 76775; 80048; 80053; 81001; 82948; 83036; 83605; 83735; 84439; 84443; 84480; 84484; 85025; 85610; 85730; 87040; 87077; 87086; 87088; 87186; 87636; 93005; 93306; 96365; 96366; 96375; 96376; 99285; A9270; G0378; J0360; J0696; J1815; J2060; J2270; J2405; J3010; J3475; Q9967

== ENCOUNTER 2024-12-04 20:04 | Emergency (ER) | payer MEDICARE, MEDICAID, SELFPAY ==
[2024-12-04 20:04] VITALS: BP 213/93; PULSE 101; RESP 20; TEMP 36.7; O2SAT 97
[2024-12-04 20:26] LABS: Add Urine Microscopic? YES; Appearance Urine Cloudy (Clear); Bacteria Urine 4+ /hpf; Bilirubin Urine Negative (Negative); Blood Urine 3+ (Negative); Color Urine Yellow (Yellow); Glucose Urine UA 3+ mg/dL (Negative); Ketones Urine Negative (Negative); Leukocyte Esterase Ur 1+ LEU/UL (Negative); Nitrate Urine Positive (Negative); Protein Urine 2+ mg/dL (Negative); RBC Urine >100 /hpf (0-2); Specific Grav Ur 1.015 (1.001-1.035); Squamous Epithelial Cell Urine None Seen /hpf (Few); WBC Urine >100 /hpf (0-3); pH Urine 6.5 (5.0-9.0)
--- OUTSIDE RECORDS SUMMARY | 2024-12-04 20:33 | XMS_ITS | Data Portability ---
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 Plan of Treatment Reminders Order Date Submit Date Provider Last Modified By Organization Details Last Modified Time Details Appointments ANY 30 2024 09:00A M Hayley Marin MD Not available Not available Not available Lab HbA1c (hemoglo bin A1c), blood 2024 025 artur In-Office Order, Internal Use Only DO Not Attach Compendium DO Not Attach Compendium, Do Not Delete/merge, [id number] 10/24/2024 11:04:39 lipid panel, serum 2024 025 [email or web address] [facility], [address] [address], [address], [place], [address], 11/14/2024 10:07:40 CMP, serum or plasma 2024 025 [email or web address] [facility], [address] [facility], [address], [place], [address], 11/14/2024 10:07:40 albumin/ creatini ne, mass ratio, urine 2024 025 [email or web address] [facility], [address] [facility], [address], [place], [address], 11/14/2024 10:07:40 CBC 2024 025 [email or web address] [facility], [address] [facility], [address], [place], [address], 11/14/2024 10:07:40 HbA1c (hemoglo bin A1c), blood 2023 024 [email or web address] In-Office Order, Internal Use Only DO Not Attach Compendium DO Not Attach Compendium, Do Not Delete/merge, [id number] 06/27/2024 11:08:17 HbA1c (hemoglo bin A1c), blood 2023 024 elise In-Office Order, Internal Use Only DO Not Attach Compendium DO Not Attach Compendium, Do Not Delete/merge, [id number] 01/19/2024 11:25:32 HbA1c (hemoglo bin A1c), blood 2022 023 [facility] In-Office Order, Internal Use Only DO Not Attach Compendium DO Not Attach Compendium, Do Not Delete/merge, [id number] 05/19/2023 11:40:24 Referral diabetic ophthalm ology referral - Please call patient for appointm ent, thanks! 2022 023 elise Iglesias MD, [address] , [place], [address], 06/05/2024 14:44:21 Procedures None recorded . Surgeries None recorded . Imaging XR, chest 2023 024 [facility] ([facility]), [address] [place] [address], [id number], 09/15/2024 16:46:49 Medication Orders omeprazo le 20 mg capsule, delayed release 2024 025 [facility], [address] [facility], [place], [address], 10/24/2024 11:04:48 metformi n 850 mg tablet 2024 025 [facility], [address] [place], [address], 10/24/2024 11:04:47 pravasta tin 40 mg tablet 2024 025 [facility], [address] [place], [address], 10/24/2024 11:04:48 albutero l sulfate HFA 90 mcg/actu ation aerosol inhaler 2024 025 [facility], [address] [place] [address], [id number], 10/24/2024 11:04:45 clopidog rel 75 mg tablet 2024 025 [facility], [address] [place] [address], [id number], 10/24/2024 11:04:48 glipizid e 10 mg tablet 2024 025 [facility], [address] [place] [address], [id number], 10/24/2024 11:04:47 lisinopr il 10 mg tablet 2024 025 [facility], [address] [place] [address], [address], 10/24/2024 11:04:50 clopidog rel 75 mg tablet 2023 024 [facility], [address] [place] [address], [id number], 06/27/2024 12:49:12 omeprazo le 20 mg capsule, delayed release 2023 024 [facility], [address] [place] [address], [id number], 06/27/2024 10:55:39 glipizid e 5 mg tablet 2023 024 [facility], [address] [place] [address], [id number], 06/27/2024 10:52:01 metformi n 850 mg tablet 2023 024 [facility], [address] [place] [address], [id number], 06/27/2024 10:55:38 Blood Glucose Test strips 2023 024 [facility], [address] [place] [address], [address], 06/27/2024 10:55:38 lisinopr il 10 mg tablet 2023 024 [facility], [address] [place] [address], [id number], 06/27/2024 10:55:40 pravasta tin 40 mg tablet 2023 024 [facility], [address] [place] [address], [id number], 06/27/2024 10:55:40 omeprazo le 20 mg capsule, delayed release 2023 024 [id number], [address], [place], [address], 01/19/2024 12:56:02 metformi n 850 mg tablet 2023 024 [facility] #[id number], [address], [place], [address], 01/19/2024 12:56:02 pravasta tin 40 mg tablet 2023 024 [id number], [address] [place], [address], 01/19/2024 12:56:01 albutero l sulfate HFA 90 mcg/actu ation aerosol inhaler 2023 024 [id number], [address], [place], [address], 01/19/2024 12:57:13 Anoro Ellipta 62.5 mcg-25 mcg/actu ation powder for inhalati on 2023 024 [facility]acy #[id number], [address], [place], [address], 06/27/2024 10:41:02 clopidog rel 75 mg tablet 2023 024 [facility]acy #[id number], [address], [place], [address], 01/19/2024 12:56:02 lisinopr il 10 mg tablet 2023 024 [facility]acy #[id number], [address], [place], [address], 01/19/2024 12:56:03 lisinopr il 10 mg tablet 2022 023 [id number], [address], [place], [address], 12/30/2022 10:39:57 Patient TargetsNo targets recorded. Patient Instructions Encounter Date Encounter Id Patient Instructions Last Modified By Organization Details Last Modified Time 12/30/2022 [id number] Quitting Tobacco : Care Instructions [facility] Not available 12/30/2022 10:39:55 learning about t ype 2 diabetes [facility] Not available 12/30/2022 10:39:55 type 2 diabetes: care instructions [facility] Not available 12/30/2022 10:39:55 learning about h igh blood pressure [facility] Not available 12/30/2022 10:39:55 05/19/2023 [id number] deciding about u sing medicines to quit smoking [facility] Not available 05/19/2023 11:40:24 Quitting Tobacco : Care Instructions [facility] Not available 05/19/2023 11:40:24 stroke: care instructions [facility] Not available 05/19/2023 11:40:24 epilepsy: care instructions si Not available 05/19/2023 11:40:24 gastroesophageal reflux disease (GERD): care instructions [facility] Not available 05/19/2023 11:40:25 Reason for Referral Diabetic Ophthalmology Refer ral for Diabetes mellitus Please call patient for appointment, thanks! Referring Physician: Sheldon Anderson, Internal Medicine, Encounter Date: 05/19/2023 Results Created Date Observation Date Name Description Value Unit Range Abnormal Flag Note LastModifiedBy Organization Detail LastModifiedTime 05/19/20 23 05/19/2023 HbA1c (hemo globi n A1c), blood HbA1c 9.3% Not Available In-Office Order Internal Use Only DO Not Attach Compendium DO Not Attach Compendium, Do Not Delete/merge, [id number] 05/19/2023 11:24:23 01/19/20 24 01/19/2024 HbA1c (hemo globi n A1c), blood HbA1c 11.4 Not Available In-Office Order Internal Use Only DO Not Attach Compendium DO Not Attach Compendium, Do Not Delete/merge, [id number] 01/19/2024 10:33:44 06/27/20 24 06/27/2024 HbA1c (hemo globi n A1c), blood HbA1c 9.8 Not Available In-Office Order Internal Use Only DO Not Attach Compendium DO Not Attach Compendium, Do Not Delete/merge, [id number] 06/27/2024 10:23:37 10/24/19 25 10/24/2024 HbA1c (hemo globi n A1c), blood HbA1c 9.0 Not Available In-Office Order Internal Use Only DO Not Attach Compendium DO Not Attach Compendium, Do Not Delete/merge, [id number] 10/24/2024 10:55:30 Result Notes None recorded. Problems Name Problem SNOMED Code Status Onset Date Resolution Date Notes Provider Name and Address Organization Details Recorded Time Diabetes mellitus 41074443 Active 2017 Not Available [facility] 4 05:56:19 Hypertensi ve disorder 05955024 Completed 201712/01/2017 Dinora Bernabe PA-C Attn: Accounting [address]ENNIF[address] , [place], [address] , [facility] 8 12:11:20 Fibromyalg ia 596823332 Active 2017 Not Available [facility] 4 05:56:18 Irritable bowel syndrome 09966679 Active 2017 Not Available [facility] 4 05:56:18 Tobacco dependence syndrome 49361705 Active 2017 Not Available [facility] 4 05:56:19 Heart disease 78115826 Active 2017 Not Available [facility] 4 05:56:18 Essential hypertensi on 72550837 Active 2017 Not Available [facility] 4 05:56:19 Muscle weakness 88884664 Active 2017 Not Available [facility] 4 05:56:18 Gastroesop hageal reflux disease 226356808 Active 2017 Not Available [facility] 4 05:56:18 Hyperchole sterolemia 70661646 Active 2017 Not Available [facility] 4 05:56:18 Seizure disorder 597821533 Active 2017 Not Available [facility] 4 05:56:18 Anxiety 33711977 Active 2017 Not Available [facility] 4 05:56:18 Cerebrovas cular accident 311163770 Active 2017 Not Available [facility] 4 05:56:18 Gastroesop hageal reflux disease without esophagiti s 661948532 Active 2017 Not Available [facility] 4 05:56:18 Headache 95020330 Active 2017 Not Available [facility] 4 05:56:18 Problem Notes None recorded. Procedures Surgical History Date Name Laterality Status Provider Name and Address Organization Details Recorded Time Tubal Ligation completed Telma arreguin MA [facility] 11/10/2017 12:01:59 Other completed Telma Azul MA [facility] 11/10/2017 12:02:39 Other completed Telma Azul JULIAN [facility] 11/10/2017 12:03:13 Heart Surgery completed Telma villalobosJULIAN [place] - [facility] 11/10/2017 12:03:46 LEEP completed Katy DangJULIAN [place] - [facility] 01/12 11:15:51 cataract surgery completed Samira JULIAN Cagle [place] - [facility] 01/19/2024 10:31:30 Imaging Results None recorded. Procedure Notes None recorded. Medical Equipment None Reported. Allergies Allergen ID Allergen Name Allergen Category Reaction Reaction Severity Criticality Documentation Date Start Date Code Code System Note Provider Name and Address Organization Details Recorded Time 937817 strawberr y allergeni c extract food hives severe Not available 11/10/2017 92346 4 RxNorm ears swell ing, eyes bulgi ng Not Available Not Available Not Available 715145 tramadol medicatio n Not available Not available Not available 07/12/2018 55623 RxNorm Not Available Not Available Not Available Medications Name Sig Start Date Stop Date Status Note LastModified by Organization Details LastModified Time cyclobenzap rine 10 mg tablet TAKE 1 TABLET BY MOUTH THREE TIMES A DAY NEEDED 05/19 completed Not Available Not Available Not Available pioglitazon e 15 mg tablet TAKE 1 TABLET BY MOUTH EVERY DAY WITH A MEAL 01/18 completed Not Available Not Available Not Available metformin 500 mg tablet TAKE 1 TABLET BY MOUTH TWICE A DAY 06/27 completed Not Available Not Available Not Available pravastatin 40 mg tablet TAKE 1 TABLET BY MOUTH EVERY DAY IN THE EVENING 2024 active Not Available Not Available Not Avai lable ofloxacin 0.3 % eye drops INSTILL 1 DROP INTO EYE 3 TIMES DAILY STARTING 2 DAYS PRIOR TO SURGERY & CONTINUE X 1 WEEK AFTER 01/18 completed Not Available Not Available Not Available tizanidine 4 mg tablet TAKE 1 TABLET BY MOUTH THREE TIMES A DAY NEEDED 10/09 completed Not Available Not Available Not Available glipizide 10 mg tablet TAKE 1 TABLET BY MOUTH ONCE DAILY active Not Available Not Available No t Available metformin 850 mg tablet Take 1 tablet twice a day by oral route. 2024 active Not Available Not Available Not Avai lable clopidogrel 75 mg tablet TAKE 1 TABLET BY MOUTH ONCE DAILY active Not Available Not Available No t Available glimepiride 2 mg tablet TAKE 1 TABLET BY MOUTH EVERY DAY WITH MEALS 01/18 completed Not Available Not Available Not Available ketorolac 0.5 % eye drops PLEASE SEE ATTACHED FOR DETAILED DIRECTION S 01/18 completed Not Available Not Available Not Available prednisolon e acetate 1 % eye drops,suspe nsion INSTILL 1 DROP INTO AFFECTED EYE(S) 3 TIMES A DAY,START ING AFTER SURGERY, CONTINUIN G FOR 3 WEEKS 01/18 completed Not Available Not Available Not Available magnesium oxide 400 mg (241.3 mg magnesium) tablet TAKE 1 TABLET BY MOUTH EVERY MORNING 06/27 completed Not Available Not Available Not Available metoclopram piedad 5 mg tablet TAKE 1 TABLET BY MOUTH TWICE A DAY DIRECTED 01/18 completed Not Available Not Available Not Available oxycodone-a cetaminophe n 10 mg-325 mg tablet Take 1 tablet every 6 hours by oral route. 11/07 completed Not Available Not Available Not Available benzonatate 100 mg capsule TAKE 1 CAPSULE BY MOUTH THREE TIMES A DAY NEEDED X10 DAYS 04/10 completed Not Available Not Available Not Available lisinopril 10 mg tablet TAKE 1 TABLET BY MOUTH ONCE DAILY active Not Available Not Available No t Available docusate sodium 100 mg capsule TAKE 1 CAPSULE BY MOUTH EVERY DAY NEEDED 05/19 completed Not Available Not Available Not Available gabapentin 300 mg capsule TAKE 1 CAPSULE BY MOUTH THREE TIMES A DAY 10/14 completed Not Available Not Available Not Available omeprazole 20 mg capsule,del ayed release TAKE 1 CAPSULE BY MOUTH twice DAILY BEFORE MEALS 2024 active Not Available Not Available Not Avai lable Diabetic Tussin DM 10 mg-100 mg/5 mL oral liquid Take 10 mL every 4 hours by oral route as needed for 5 days. 04/30 completed Not Available Not Available Not Available albuterol sulfate HFA 90 mcg/actuati on aerosol inhaler two puffs qid prn 2024 active Not Available Not Available Not Avai lable cefdinir 300 mg capsule TAKE 1 CAPSULE BY MOUTH EVERY 12 HOURS 12/30 completed Not Available Not Available Not Available topiramate 100 mg tablet Take 1 tablet 3 times a day by oral route as directed for 30 days. 11/07 completed Not Available Not Available Not Available glipizide 5 mg tablet TAKE 1 TABLET BY MOUTH ONCE DAILY active Not Available Not Available No t Available Blood Glucose Test strips Use to test once daily 2023 active Not Available Not Available Not Avai lable metoprolol tartrate 25 mg tablet Take 1 tablet twice a day by oral route as directed for 30 days. 11/07 completed Not Available Not Available Not Available nitrofurant oin monohydrate /macrocryst als 100 mg capsule TAKE 1 CAPSULE BY MOUTH EVERY 12 HOURS X10 DAYS 04/10 completed Not Available Not Available Not Available Calcium 600 + D(3) 600 mg-5 mcg (200 unit) tablet Take 2 tablets every day by oral route as directed for 30 days. 05/07 completed Not Available Not Available Not Available Advair HFA 45 mcg-21 mcg/actuati on aerosol inhaler active Not Available Not Available Not Available omeprazole 20 mg tablet,yaakov yed release 12/01 completed Not Available Not Available Not Available ClearLax 17 gram/dose oral powder 07/12 completed Not Available Not Available Not Available Farxiga 5 mg tablet TAKE 1 TABLET BY MOUTH EVERY DAY AFTER MEALS 01/18 completed Not Available Not Available Not Available Anoro Ellipta 62.5 mcg-25 mcg/actuati on powder for inhalation INHALE 1 PUFF BY MOUTH EVERY DAY 06/27 completed Not Available Not Available Not Available OneTouch Verio Flex Meter USE DIRECTED DAILY active Not Available Not Available No t Available Bevespi Aerosphere 9 mcg-4.8 mcg HFA aerosol inhaler two puffs bid 06/27 completed Not Available Not Available Not Available OneTouch Delica Plus Lancet 33 gauge use to check blood sugar once daily 2024 active Not Available Not Available Not Avai lable Vitals Date Recorded Body weight Heart rate Body temperature Oxygen saturation Oxygen saturation in Arterial blood by Pulse oximetry Systolic blood pressure Diastolic blood pressure Provider Name and Address Organization Details Last Updated DateTime 3 85678.9 2 g 83 /min 98.4 [degF] 98 % 98 % 112 mm[Hg] 72 mm[Hg] Tracy Pandey MA [facility] 3 10:03:12 Date Recorded Body height Body mass index (BMI) Body weight Heart rate Oxygen saturation Oxygen saturation in Arterial blood by Pulse oximetry Systolic blood pressure Diastolic blood pressure Provider Name and Address Organization Details Last Updated DateTime 3 170.18 cm 20.4 kg/m2 32215.0 1 g 100 /min 99 % 99 % 118 mm[Hg] 80 mm[Hg] Rossy Iniguez MA [facility] 3 09:48:33 Date Recorded Body height Body mass index (BMI) Body weight Oxygen saturation Oxygen saturation in Arterial blood by Pulse oximetry Heart rate Systolic blood pressure Diastolic blood pressure Provider Name and Address Organization Details Last Updated DateTime 4 170.18 cm 20.4 kg/m2 96984.0 1 g 95 % 95 % 72 /min 120 mm[Hg] 72 mm[Hg] Samira Cagle MA [facility] 4 10:32:59 Date Recorded Body height Body mass index (BMI) Body weight Oxygen saturation Oxygen saturation in Arterial blood by Pulse oximetry Heart rate Respiratory rate Systolic blood pressure Diastolic blood pressure Provider Name and Address Organization Details Last Updated DateTime 4 170.18 cm 20.4 kg/m2 24687.0 1 g 96 % 96 % 91 /min 16 /min 118 mm[Hg] 72 mm[Hg] Samira Cagle MA [facility] 4 09:54:52 Date Recorded Body height Body mass index (BMI) Body weight Body temperature Oxygen saturation Oxygen saturation in Arterial blood by Pulse oximetry Heart rate Systolic blood pressure Diastolic blood pressure Provider Name and Address Organization Details Last Updated DateTime 5 170.18 cm 23.8 kg/m2 97744.0 4 g 97.5 [degF] 97 % 97 % 88 /min 122 mm[Hg] 82 mm[Hg] Samira Cagle MA [facility] 5 10:02:40 Social History Question Answer Notes LastModified by Organization Details LastModified Time Tobacco Smoking Status Former Smoker Samira Cagle MA null, [facility] 06/27/2024 09:53:11 Do You Have An Advance Directive? Yes Information not available 11/10/2017 Is Your Home Air Conditioned? Yes Information not available 11/07/2020 What Is Your Level Of Alcohol Consumption? None Information not available 11/10/2017 Are You Currently Sexually Active With Anyone Who Has Traveled (within The Last 12 Weeks) To A Zika-affected Area? No Information not available 11/07/2020 Do You Have A Basement? No Information not available 11/07/2020 Do You Wear A Helmet When Biking? No Information not available 11/07/2020 Are You Blind Or Do You Have Difficulty Seeing? No Information not available 11/07/2020 Is Blood Transfusion Acceptable In An Emergency? Yes Information not available 01/12/2018 What Is Your Level Of Caffeine Consumption? None Information not available 11/10/2017 Are You A Caregiver? No Information not available 11/07/2020 How Much Tobacco Do You Chew? None Information not available 11/10/2017 What Type Of Senior Net Application Developer Do You Use? None Information not available 11/07/2020 In The 14 Days Before Symptom Onset, Have You Had Close Contact With A Laboratory-con firmed COVID-19 While That Case Was Ill? No Information not available 11/07/2020 In The 14 Days Before Symptom Onset, Have You Had Close Contact With A Person Who Is Under Investigation For COVID-19 While That Person Was Ill? No Information not available 11/07/2020 Have You Been To An Area Known To Be High Risk For COVID-19? No Information not available 11/07/2020 Are You Currently Employed? No Information not available 11/10/2017 Are You Deaf Or Do You Have Serious Difficulty Hearing? No Information not available 11/07/2020 What Type Of Diet Are You Following? REGULAR Information not available 11/10/2017 Do You Have A Directive To Physicians? Yes Information not available 11/07/2020 Which Illicit Or Recreational Drugs Have You Used? None Information not available 01/12/2018 Have You Processed Blood Or Body Fluids From An Ebola Virus Disease Patient Without Appropriate PPE? No Information not available 11/07/2020 Do You Reside In Or Have You Traveled To An Area Where Ebola Virus Transmission Is Active? No Information not available 11/07/2020 Education 10 Information not available 11/10/2017 What Is The Highest Grade Or Level Of School You Have Completed Or The Highest Degree You Have Received? [id number] Information not available 11/07/2020 Do You Have An Electrostatic Air Filter? No Information not available 11/07/2020 What Is Your Occupation? Disabled Information not available 01/12/2018 Have You Been Exposed To Chemicals Or Toxins? No Information not available 11/07/2020 Have You Been Exposed To Heavy Metals? No Information not available 11/07/2020 Have There Been Any Changes To Your Family Or Social Situation? No Information not available 11/07/2020 Are There Any Guns Present In Your Home? No Information not available 11/10/2017 Hard Of Hearing Or Deaf In One Or Both Ears? No Information not available 11/10/2017 Have You Recently Or Are You Planning To Travel To An Area With Zika Virus? No Information not available 11/07/2020 Do You Have A Humidifier? No Information not available 11/07/2020 Do You Use Insect Repellent Routinely? Yes Information not available 11/07/2020 Legally Blind In One Or Both Eyes? No Information not available 11/10/2017 Where Do You Live? Apartment Information not available 11/07/2020 Live Alone Or With Others? Alone Information not available 11/10/2017 How Long Have You Lived There? 9 Information not available 11/07/2020 Do You Have A Medical Power Of Step Down Nurse? Yes Information not available 11/07/2020 Do You Have Moisture Problems In Your Home? No Information not available 11/07/2020 What Was The Date Of Your Most Recent Tobacco Screening? 10/24/2024 Information not available 10/24/2024 How Many Children Do You Have? 2 Information not available 11/10/2017 Do You Have An Out Of Hospital DNR? Yes Information not available 11/07/2020 Performs Monthly Self-breast Exam? Yes Information not available 01/12/2018 Do You Have Any Pets? Yes Information not available 11/07/2020 What Is Your Relationship Status? Single Information not available 01/12/2018 Do You Use Your Seat Belt Or Car Seat Routinely? Yes Information not available 11/07/2020 Seat Belts Used Routinely Yes Information not available 11/10/2017 Are You Sexually Active? No Information not available 11/10/2017 Smoke Alarm In Home Yes Information not available 11/10/2017 Do You Have Smoke And Carbon Monoxide Detectors In Your Home? Yes Information not available 11/07/2020 At What Age Did You Start Smoking Tobacco? 33 Information not available 01/12/2018 Are You Passively Exposed To Smoke? No Information not available 11/10/2017 Are There Any Smokers In Your House? No Information not available 11/07/2020 How Much Tobacco Do You Smoke? 0.25 PPD 1ppd Every 2-3 Days Information not available 04/30/2021 Do You Participate In Social Media? No Information not available 11/07/2020 General Stress Level High Information not available 11/10/2017 Do You Feel Stressed (tense, Restless, Nervous, Or Anxious, Or Unable To Sleep At Night)? [id number] Information not available 11/07/2020 Do You Use Any Illicit Or Recreational Drugs? No Information not available 06/27/2024 Do You Use Sunscreen Routinely? No Information not available 11/07/2020 Has Tobacco Cessation Counseling Been Provided? Yes Information not available 06/27/2024 On What Date Was Tobacco Cessation Counseling Provided? 10/24/2024 Information not available 10/24/2024 How Many Years Have You Smoked Tobacco? 20 Information not available 04/30/2021 Have You Recently Traveled Abroad? No Information not available 11/07/2020 What Type Of Noise Exposure Are You Exposed To? NoExposureToExcessiveNoise dnewsomma Infor alena not available 11/07/2020 Are You Currently In School? No Information not available 11/07/2020 Do You Or Have You Ever Used Any Other Forms Of Tobacco Or Nicotine? No Information not available 04/30/2021 Sex: Female Functional Status Question Answer Note LastModified by Organizat ion Details LastModified Time Do you have difficulty walking or climbing stairs? Yes Information not available 11/07/2020 Are you able to walk? YESASSIST Information not available 11/07/2020 Do you have difficulty doing errands alone? Yes Information not available 11/07/2020 Are you able to care for yourself? No Information not available 11/10/2017 Do you have difficulty dressing or bathing? No Information not available 11/07/2020 What is your exercise level? None Information not available 11/10/2017 Mental Status Question Answer Note LastModified by Organization D etails LastModified Time Do you have difficulty concentrating, remembering or making decisions? No Information no t available 11/07/2020 Family History Relationship Description Onset Age of this Age Resolved Age Notes LastModified by Organization Details LastModified Time Father Diabetes mellitus Not available 2017 11:56:46 Father Heart disease Not available 2017 11:57:23 Mother Diabetes mellitus Not available 2017 11:56:46 Mother Migraine Not available 0 11/10/2017 11:57:40 Brother Diabetes mellitus x 2 Not available 2017 11:56:46 Brother Heart disease Not available 2017 11:57:23 Sister Diabetes mellitus x 3 Not available 2017 11:56:46 Sister Heart disease x 2 Not available 2017 11:57:23 Son Migraine Not available 0 11/10/2017 11:58:05 Daughter Migraine Not available 11/10/2017 11:58:10 Medical History Condition Response Other Y High Blood Pressure N Breast Cancer N Thyroid Problems N Kidney or Bladder Problems N GI Problems N Depression N Blood Clots Y Lung Disease N Acne N Breast Problem N Eating Disorder N Anemia N Anesthesia Complications N Headaches/Migraines N Anxiety Disorder Y Diabetes Y Ovarian Cancer N Muscle, Joint, or Bone Problems N Blood Transfusions N Seizures/Epilepsy Y Infertility N Acid Reflux (GERD) Y Cancer N Stroke Y Abuse/Domestic Violence N Allergies Y Endometriosis N High Cholesterol Y Hepatitis N Liver Disease N Heart Disease N Headaches Y Pre-Eclampsia N Osteoporosis N Gynecological History Statement/Question Response Abnormal Pap Y On BCP's at Conception? N STIs/STDs Y HPV Vaccine N Most Recent Mammogram Age at Menarche 13 Current Control Method Tubal Ligat ion Age at First Child 19 If Post Menopausal, Age at Menopause 44 Sexually Active? N Menses Monthly N Date of Last Pap Smear Sexual Problems? N Obstetrics History GPAL:G 2 P 2 0 0 2 Type Value Full Term 2 Living 2 Total 2 Past Encounters Encounter ID Performer Location Encounter Start Date Encounter Closed Date Diagnosis/Indication Diagnosis SNOMED-CT Code Diagnosis ICD10 Code Diagnosis Note [id number] PETER Cottrell (Adult Med) [address] [place] [address] [phone] 11/10/2017 11:19:18 11/10/2017 12:53:48 Adult health examination 201195884 Z00.01 Diabetes mellitus 165445 09 E11.9 a1c: 5.9 in office today - c/w metformin 500mg BID Screening for malignant neoplasm of colon 676268888 Z12.11 Tobacco de pendence syndrome 53270927 F17.200 Advised to quit smoking Fibromyalgia 755161184 M 79.7 Irritable bowel syndrome 36915387 K58.9 Essential hypertension 82515479 I10 116/74 - NAD, WNLDiscuss ed DASH diet Advised 30 minutes of exercise minimum dailyAdvis ed tobacco, alcohol, caffeine all increase BPAdvised goal for BP is <140/90 Headache 92256194 R51 Gastroesop hageal reflux disease without esophagitis 248763377 K21.9 [id number] PETER Cottrell (Adult Med) [address] [place], [place] [phone] 12/01/2017 10:15:31 12/01/2017 15:32:54 Essential hypertension 62964881 I10 118/72 - NAD, WNLDiscuss ed DASH diet Advised 30 minutes of exercise minimum dailyAdvis ed tobacco, alcohol, caffeine all increase BPAdvised goal for BP is <140/90 Tobacco de pendence syndrome 81039527 F17.200 Advised to quit smoking Irritable bowel syndrome 94513103 K58.9 Diabetes mellitus 569346 09 E11.9 a1c: 5.9 in office today - c/w metformin 500mg BID Fibromyalgia 182707932 M 79.7 followed by pain management Heart disease 38412598 I 51.9 Muscle weakness 74172972 M62.81 In electric wheelchair [id number] MD Matthew Matthew ([employer]) [address] [place] [address] [phone] 01/12/2018 10:17:26 01/12/2018 12:33:37 Gynecologic examination 57983792 Z01.411 Age appropriat e counseling done. Screening mammography 24 719972 Z12.31 [id number] PETER Cottrell (Adult Med) [address] [place] [address] [phone] 07/12/2018 09:13:47 07/13/2018 11:59:20 Fibromyalgia 335742929 M79.7 followed by pain management - per case management , needs a TENs order from PCP Diabetes mellitus 558053 09 E11.9 a1c: 5.9 in office 10/2017 - c/w metformin 500mg BID Essential hypertension 61671034 I10 118/72 - NAD, WNLDiscuss ed DASH diet Advised 30 minutes of exercise minimum dailyAdvis ed tobacco, alcohol, caffeine all increase BPAdvised goal for BP is <140/90 Gastroesop hageal reflux disease without esophagitis 315188665 K21.9 Advised to stay away from spicy and greasy foodsAdvis ed to stay away from fatty foodsDo not eat within 2 hours of going to bedStay sitting up after mealsNo smoking c/w omeprazole BID Headache 91087633 R51 well controlled with topiramate [id number] MD Matthew Sanz (Adult Med) [address] [place] [address] [phone] 11/11/2018 10:44:53 11/12/2018 12:19:57 Diabetes mellitus 65184482 E11.9 Blood sugar 11 mg% 11-11-2018 , she is informed. Seizure disorder 5893910 02 G40.909 Stable. Hypercholesterolemia 136 76848 E78.00 Low saturated fat diet. Cerebrovas cular accident 685352938 I63.9 Also had lower back injury before, can not walk since then. Essential hypertension 51651389 I10 Low salt diet. Tobacco de pendence syndrome 36796078 F17.200 Gastroesop hageal reflux disease without esophagitis 616292501 K21.9 Cramp in lower limb 4499 49581 R25.2 [id number] MD Matthew Sanz (Adult Med) [address] [place] [address] [phone] 0 05/10/2019 10:07:23 05/11/2019 13:08:08 Type 2 diabetes mellitus 11541345 E11.65 Well controlled . History of cerebrovascular accident 963878897 Z86.73 Stable. Seizure disorder 5808782 02 G40.909 Stable. Chronic pain syndrome 37 6998106 G89.4 Under the care of her pain management clinic. Gastroesop hageal reflux disease without esophagitis 127790143 K21.9 Diabetes mellitus 832564 09 E11.9 Blood sugar 110mg% 11-11-2018 , she is informed. Hypercholesterolemia 136 94043 E78.00 Low saturated fat diet. Cerebrovas cular accident 242761067 I63.9 Also had lower back injury before, can not walk since then. Coronary atherosclerosis 022176133 I25.10 Stable. Essential hypertension 83889594 I10 Low salt diet. Tobacco de pendence syndrome 39371940 F17.200 Advised her to quit cigarettes smoking. Cramp in lower limb 4499 08155 R25.2 She has enough tizanidine . [id number] MD Matthew Sanz (Adult Med) [address] [place] [address] [phone] [id number] 11/07/2019 09:46:00 11/07/2019 11:23:37 Diabetes mellitus 80146602 E11.9 Blood sugar 110mg% 11-11-2018 , she is informed. Seizure disorder 6801021 02 G40.909 Stable. No medication s for 3 years. History of cerebrovascular accident 810975758 Z86.73 Stable. Degenerati ve joint disease involving multiple joints 150102469 M15.9 Multiple joints marquise and stiff. Migraine 24153170 G43.90 9 She dose not want to take medication s. Cerebrovas cular accident 116069696 I63.9 Also had lower back injury before, can not walk since then. Hypercholesterolemia 136 07139 E78.00 Low saturated fat diet. Gastroesop hageal reflux disease without esophagitis 244006199 K21.9 Stable. Essential hypertension 59725458 I10 Low salt diet. SHe refuses any medication now, she wants to monitor BP for the time being. Ma took was 148/ ? , repeat BP taken was 160 /80. mmHg. Renal mass 621080571 N28 .89 She said that she had vascular tumor , image test was performed in June 2019 at [facility], [place]ital, will obtain the record. [id number] Sheldon Anderson MD [facility] (Adult Med) [address] [place] [address] [phone] 05/07/2020 08:16:09 05/07/2020 17:47:54 Cerebrovascular accident 022697411 I63.9 Also had lower back injury before, can not walk since then. Asking for wheerchair from [employer] [phone] [place] . Diabetes mellitus 626094 09 E11.9 Blood sugar 110mg% 11-11-2018 , she is informed. Essential hypertension 47487386 I10 Low salt diet. SHe refuses any medication now, she wants to monitor BP for the time being. Ma took was 148/ ? , repeat BP taken was 160 /80. mmHg. Fibromyalgia 107960537 M 79.7 wILL TRY GABAPENTIN . Hypercholesterolemia 136 12430 E78.00 Low saturated fat diet. Seizure disorder 5320729 02 G40.909 Stable. No medication s for 3 years. Tobacco de pendence syndrome 07102831 F17.200 Advised her to quit cigarettes smoking. Gastroesop hageal reflux disease without esophagitis 733859558 K21.9 Stable. [id number] MD Matthew Sanz (Adult Med) [address] [place] [address] [phone] 11/07/2020 09:15:15 11/08/2020 12:44:16 Chronic obstructive pulmonary disease 43617088 J44.9 off and on recently dry cough. Tobacco de pendence syndrome 83277611 F17.200 Advised her to quit cigarettes smoking. Type 2 alyssa betes mellitus 31094958 E11.65 Well controlled . On metformin. History of cerebrovascular accident 906115994 Z86.73 Stable. On clopidogre l. Acid reflux 941923942 K2 1.9 Stable on omeprazole . Dyslipidem ia due to type 2 diabetes mellitus 1807635295 02 E78.5 Omn low animal fat diet, and pravastati n. [id number] Sheldon Anderson MD [facility] (Adult Med) [address] [place] [address] [phone] 0 04/30/2021 08:41:19 05/01/2021 10:05:26 Cerebrovascular accident 687414375 I63.9 Also had lower back injury before, can not walk since then. Asking for wheerchair from [employer] [phone] [place] [phone]. Diabetes mellitus 419755 09 E11.9 Blood sugar 110mg% 11-11-2018 , she is informed. Diabetic diet, some form of exercise and keep the weight down. Essential hypertension 16616615 I10 Low salt diet. SHe refuses any medication now, she wants to monitor BP for the time being. MA took was 148/ ? , repeat BP taken was 160 /80. mmHg. Fibromyalgia 793068200 M 80.7 wILL TRY GABAPENTIN . Gastroesop hageal reflux disease 250580658 K21.9 Stable. Hypercholesterolemia 136 15251 E78.00 Low saturated fat diet. Low animal fat diet. Tobacco de pendence syndrome 74913885 F17.200 Advised her to quit cigarettes smoking. Seizure disorder 7430054 02 G40.909 Stable. No medication s for 3 years. Chronic ob structive pulmonary disease 83225307 J44.9 off and on recently dry cough. Chronic low back pain 27 5592820 M54.5 Will try tizanidine as needed basis. [id number] MD Matthew Sanz (Adult Med) [address] [place] [address] [phone] 10/09/2021 10:04:53 10/09/2021 11:45:11 Cerebrovascular accident 319782925 I63.9 Also had lower back injury before, can not walk since then. Asking for wheerchair from [employer] [place] . Diabetes mellitus 432446 09 E11.9 Blood sugar 110mg% 11-11-2018 , she is informed. Diabetic diet, some form of exercise and keep the weight down. Essential hypertension 94931304 I10 Low salt diet. She refuses any medication now, she wants to monitor BP for the time being. MA took was 148/ ? , repeat BP taken was 160 /80. mm Hg. 10-09-2021 BP reading is 144/86 mm HG. Gastroesop hageal reflux disease 870779377 K21.9 Stable. Hypercholesterolemia 136 77752 E78.00 Low saturated fat diet. Low animal fat diet. Seizure disorder 5533120 02 G40.909 Stable. No medication s for 3 years. Tobacco de pendence syndrome 48385055 F17.200 Advised her to quit cigarettes smoking. Chronic ob structive pulmonary disease 02449151 J44.9 off and on recently dry cough. Fibromyalgia 026646869 M 79.7 WILL TRY GABAPENTIN . Smoker 43409492 F17.200 Advised her to quit smoking for the good helath and financial reasons. [id number] Sheldon Anderson MD [facility] (Adult Med) [address] [place] [address] [phone] 0 12/11/2021 09:44:09 12/12/2021 10:28:44 Diabetes mellitus 60153963 E11.9 Blood sugar 110mg% 11-11-2018 , she is informed. Diabetic diet, some form of exercise and keep the weight down. Poor eye sight, hard to use insulin shot. Tobacco de pendence syndrome 28844846 F17.200 Advised her to quit cigarettes smoking. She has no intension to quit smoking, she is fully aware of possible consequenc e , such as COPD, lung cancer, and other health problem. Irritable bowel syndrome 44409535 K58.9 Stable, no complaint today. Hypercholesterolemia 136 37841 E78.00 Low saturated fat diet. Low animal fat diet. Heart disease 64635572 I 51.9 Under the care of her cardiologi ,. Gastroesop hageal reflux disease without esophagitis 924223342 K21.9 Stable. Fibromyalgia 094835842 M 79.7 WILL TRY GABAPENTIN . Essential hypertension 79636865 I10 Low salt diet. She refuses any medication now, she wants to monitor BP for the time being. MA took was 148/ ? , repeat BP taken was 160 /80. mm Hg. 10-09-2021 BP reading is 144/86 mm HG. BP is 122/80 mm HG 12-11-2021 . Cerebrovas cular accident 962333408 I63.9 Also had lower back injury before, can not walk since then. Asking for wheerchair from [employer] [phone] [place] [phone]. Anxiety 31422057 F41.9 Stable. Resting tremor 20511918 G25.2 Her father had parkinson 's disease . Screening mammography 24 418846 Z12.31 She claims that she can not stand up , so she can not take mammogram, but [place] has no lump of breast she siad, [id number] Sheldon Anderson MD [facility] (Adult Med) [address] [place] [address] [phone] 04/10/2022 10:17:39 04/11/2022 12:32:23 Type 2 diabetes mellitus 24641123 E11.65 Well controlled . On metformin. Wants glucometer . Bilateral cataracts 9572 2003 H26.9 Waiting Ha1 to come down around 7-8% before her eye doctor schedule operation, currently she can not see. [id number] Sheldon Anderson MD [facility] (Adult Med) [address] [place] [address] [phone] 10/14/2022 09:57:23 10/16/2022 10:29:33 Smoker 76146045 F17.200 Advised her to quit smoking for the good health and financial reasons. Type 2 alyssa betes mellitus 20990203 E11.65 Well controlled . On metformin. Wants glucometer . Dyslipidem ia due to type 2 diabetes mellitus 8880706238 02 E78.5 Omn low animal fat diet, and pravastati n. Acid reflux 380576356 K2 1.9 Stable on omeprazole . Seizure disorder 9112516 02 G40.909 Stable. No medication s for 3 years. Hold aspirin. ibuprofen, naproxen or clopidogre l at least 5 days prior to operation for safety precaution . Chronic id iopathic constipation 60999981 K59.04 Will try docusate and reglan. Colon [facility] [place] [facility] screening declined 9117071542 9109 Z53.20 Refused 10-14-2022 . Mammogram declined 08024 5004 Z53.20 Refused 10-14-2022 . [id number] MD Matthew Sanz (Adult Med) [address] [place] [address] [phone] 0 12/30/2022 09:36:22 12/31/2022 10:00:33 Essential hypertension 23282466 I10 Low salt diet. She refuses any medication now, she wants to monitor BP for the time being. MA took was 148/ ? , repeat BP taken was 160 /80. mm Hg. 10-09-2021 BP reading is 144/86 mm HG. BP is 122/80 mm HG 12-11-2021 . 12-30-22, BP is 112/72. on lisinopril 10 mg/day. also on magnesium oxide 400 mg/day. Last A1c was 7.4% 4g42-10-04 23. Type 2 alyssa betes mellitus 91536357 E11.65 Well controlled . On metformin. Wants glucometer . Smoker 25302073 F17.200 Advised her to quit smoking for the good health and financial reasons. She has no intention to quit smoking. [id number] MD Matthew Sanz (Adult Med) [address] [place] [address] [phone] 05/19/2023 09:36:08 05/20/2023 15:31:44 Cerebrovascular accident 879167365 I63.9 Also had lower back injury before, can not walk since then. [facility] [employer] [phone] [place] . Now she is on scooter, wants to replace whole scooter. now her supply company is [employer] (fax) [phone]. specialty person MR. Surya Rasheed [phone]. Diabetes mellitus 586906 09 E11.9 Blood sugar 110mg% 11-11-2018 , she is informed. Diabetic diet, some form of exercise and keep the weight down. Poor eye sight, hard to use insulin shot. Fibromyalgia 586648654 M 79.7 WILL TRY GABAPENTIN . Gastroesop hageal reflux disease 403988809 K21.9 Stable. Seizure disorder 7292208 02 G40.909 Stable. No medication s for 3 years. Hold aspirin. ibuprofen, naproxen or clopidogre l at least 5 days prior to operation for safety precaution . Tobacco de pendence syndrome 96177787 F17.200 Advised her to quit cigarettes smoking. She has no intension to quit smoking, she is fully aware of possible consequenc e , such as COPD, lung cancer, and other health problem. Colon canc er screening declined 2378718161 9109 Z53.20 Refused 10-14-2022 . Declined today 05-19-23. Mammogram declined 14672 5004 Z53.20 Refused 10-14-2022 . Declined today 05-19-23. [id number] [facility] [address] [place] [address] [phone] 01/19/2024 10:12:07 01/22/2024 13:14:55 Normal weight 69523407 Z68.20 Seizure disorder 8237592 02 G40.909 Essential hypertension 12854869 I10 Blood pressure controlled . Continue Lisinopril . Will get fasting blood work and urine at follow up appointmen t. Type 2 alyssa betes mellitus 71585215 E11.9 Hemoglobin A1C is elevated. Diabetes is not controlled . Will increase Metformin to 875 mg BID. Stressed the importance of patient following diabetic diet. Will have her check fasting acu checks and record them. At follow up will find out when last opthalmolo gy visit was. Acid reflux 372437768 K2 1.9 Continue Omeprazole for reflux. Dyslipidem ia due to type 2 diabetes mellitus 3624066382 02 E78.5 Will return for fasting lipid profile. Chronic cough 17159101 R 05.3 Patient has had a cough for a year. Has been told at some point she has COPD. Ordered a CXR. Will try inhalers. Let me know if cough does not improve. Chronic ob structive pulmonary disease 66821210 J44.9 Will start Anoro regularly and Albuterol as needed. Nicotine user 740606655 Z72.0 Recommend cessation. Patient is working on cutting back. History of cerebrovascular accident 614151222 Z86.73 Continue Clopidogre l. [id number] Hayley Marin MD [facility] (Adult Med) [address] [place] [phone] 06/27/2024 09:45:22 06/28/2024 11:25:54 Chronic obstructive pulmonary disease 14456957 J44.9 Type 2 alyssa betes mellitus 13236083 E11.9 Her Hemoglobin A1C has slightly improved with the higher dose of Metformin but it is still not close to 7.0. We talked about increasing Metformin, and then if that didn't get it there adding Glipizide, but it is hard for her to get in here so we decided to add the Glipizide now. Discussed risk of glucose dropping. Advised her to take it with food. She is out of lancets to do acu checks so will send those out. She is not fasting today and she did not want to do blood work. She will be due for yearly blood work in September, so she will make a morning appointmen t and come in fasting. If the weather is bad she will have to reschedule because it is hard for her to get around in her wheelchair . She said she has seen the ophthalmol ogist but I don't have records from the last visit. I will try to get those. Recommende d she check her feet regularly. Seizure disorder 2590695 02 G40.909 Essential hypertension 04561377 I10 Blood pressure controlled . Continue Lisinopril . Will get fasting blood work and urine in September. Acid reflux 256642508 K2 1.9 Continue Omeprazole for reflux. Dyslipidem ia due to type 2 diabetes mellitus 5777363298 02 E78.5 Will return for fasting lipid profile in September. Diabetic p eripheral neuropathy 512486416 E11.40 Symptoms consistent with diabetic peripheral neuropathy . She did not want to do any further work up or take medication at this time due to cost. Will continue to monitor. Adjustment disorder with anxious mood 72751291 F43.22 After patient was blind she experience d multiple falls. She is now very worried about falling again. She also has back issues and knee problems that contribute to her instabilit y. She has had multiple people in her life that have made it difficult for her to trust, and probably has a complex trauma history. She does not socialize at all and prefers to avoid people. She said she worries about infection. I did offer to discuss mental health medication or therapy that could help quality of life but she did not want to do that today. She said she is content and does not feel depressed. I told her I am always open to have further conversati on. Low back pain 523899417 M54.50 Trauma. Multiple falls. Seen by specialist in [place]. Saw pain management here. They wanted to give her pain medication which she does not waht. Does not want to see anyone at this time due to cost. Stable. Nicotine user 381743201 Z72.0 Patient recently quit, but that is really because doesn't have anyone to get them for her. Congratula mor her on quitting and reminded her of the health benefits. History of transient ischemic attack 828038272 Z86.73 [id number] MD [facility] [address] [place] [address] [phone] 10/24/2024 09:39:26 10/26/2024 10:54:18 Chronic obstructive pulmonary disease 28300142 J44.9 Type 2 alyssa betes mellitus 19757992 E11.9 Hemoglobin A1C today was elevated. We are going to increase her Glipizide to 10 mg daily and she will follow up in four months. We will repeat a hemoglobin A1C at that time. History of transient ischemic attack 979351616 Z86.73 Essential hypertension 38310258 I10 Blood pressure controlled . Acid reflux 264041277 K2 1.9 Type 2 alyssa betes mellitus without complication 990602310 E11.9 Hemoglobin A1C elevated. Increasing Glipizide to BID. Follow up in four months. Getting yearly blood work today. Dyslipidem ia due to type 2 diabetes mellitus 8674631650 02 E78.5 Dysphagia 68560277 R13.1 0 Patient refuses any further work up today. Worried about cost. Will think about it and discuss further at follow up. Falls 757825072 R29.6 Reviewed possible etiologies : neurologic or cardiovasc ular (seizure, arrhythmia , valvuar, neurologic /stenosis) . Encouraged her to undergo further work up. MRI of spine and Holter. Patient was concerned about cost and I said Lee would work with her. Concerned about transporta tion and I said I would look into that for her. I explained this could be a life threatenin g situation or a situation that could not be reversed with time. She understand s that and wants to think about it before we order anything. She will follow up in three months to discuss further. Will let me know if symptoms worse. Health Concerns Section Related Observation LastModified by Organization Detai ls LastModified Time None Recorded Concern Status LastModified by Organization Details LastModified Time None Recorded Advance Directives Directive Y: Payers Encounter Date Sequence Insurance Name Policy Number Policy Herring Covered Member ID Herring Member ID Guarantor Name 12/30/2022 1 [facility] (MEDICARE REPLACEMENT HMO) Caitlyn Davis [id number] Caitlyn Davis 12/30/2022 2 [place] WHEN [place]ARE OR MEDICARE REPLACEMENT PRIMARY) Caitlyn L Davis [id number] Caitlyn Davis 05/19/2023 2 [place]IC[place] REPLACEMENT PRIMARY) Caitlyn L Davis [id number] Caitlyn Davis 05/19/2023 1 [facility] ON OR AFTER 09/28/2020 - DUAL ELIGIBLE (MEDICARE REPLACEMENT/ADVANT AGE - HMO) [id number] Caitlyn L Davis [id number] Caitlyn Davis 01/19/2024 1 [facility] ON OR AFTER 09/28/2020 - DUAL ELIGIBLE (MEDICARE REPLACEMENT/ADVANT AGE - HMO) [id number] Caitlyn L Davis [id number] Caitlyn Davis 01/19/2024 2 [facility] - DUAL ELIGIBLE - [place] (MEDICARE REPLACEMENT/ADVANT AGE) Caitlyn Davis [id number] Caitlyn Davis 06/27/2024 1 [place] Caitlyn L Davis [id number] Caitlyn Davis 10/24/2024 1 [place] Caitlyn L Davis [id number] Caitlyn Davis Notes Date Note Type Note Provider Name and Address Organization Details Recorded Time 12/30/2022 text/html Office visit, allergic to strawberry and tramadol. history of type 2 DM, hypertension, smokes one cigarette /day, has quit smoking for 10 years , but smokes again. only wants to refill lisinopril. otherwise has enough med refills, bought magnesium oxide 400 mg/day for 30 days. but no magnesium blood test according to our record. Last potassium was normal, not on diuretic. dose not drink alcohol neither. Sheldon Anderson MD Attn: Accounting,[address] [facility], [place], [address], [facility] 12/30/2022 10:40:02 05/19/2023 text/html Office visit, allergic to strawberry and tramadol, type 2 DM, a smoker. , wants scooder replaced. Wants to D/C laxative for BM which has been normal. but wants to keep metoclopramide for nausea. Sheldon Anderson MD Attn: Accounting,[address] [facility], [place], [address], [facility] 05/19/2023 11:40:30 01/19/2024 text/html here for six thu follow up and for refills, treated for diabetes and nausea, saw a stomach doctor years ago, has had two accidents and injured lower back, legs and knees don't want to work all the time, CVA, seizures, between seizures and strokes has some memory issues and confusion, smoker but trying to decrease, arthritis, care worker checks sugar every week, last week sugars 300, will fast before next appointment to get blood work, had two different blockages to heart, no chest pain, no shortness of breath, problems with feet all the time, lift hit feet two years ago, problems with feet since, feet cramp, would like an inhaler for breathing, has been told has COPD, has been on inhalers before, has had a cough for the last year, 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, has been on inhlaers before Hayley Marin MD Attn: Accounting,[address] [facility], [place], [address], [facility] 01/19/2024 12:59:03 06/27/2024 text/html follow up, doing the same, no complaints, needs refills, taken off medical plan, has $4,000 spin down, ran out of needles, increased Metformin at last visit, acu check at home better, tolerating Metformin okay, Metformin did not make stomach issues worse, no sores on feet, feet burn all the time, breathing the same, now only inhaler she has is Albuterol, uses Albuterol four times a day, quit smoking, had nobody to get cigarettes, quit four days ago, used patch years ago, did not help, not that worried about something happening to her, doesn't leave house except to come to doctor, no visitors, in wheelchair because falls a lot, 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, when was blind couldn't get around much so had to walk, hit head at times, hard time standing on legs because of lower back injuries and bad knees, had MRI in [place], saw pain management here, all they wanted to do is give her pain medication and she didn't want that, had knee injection, had seizures, doesn't want to be around people because doesn't want to get sick, has had a lot of bad things happen to her, feels content, not depressed Hayley Marin MD Attn: Accounting,[address] [facility], [place], [address], [facility] 06/27/2024 12:49:22 10/24/2024 text/html follow up, never got needles from last visit to check blood sugar, was over eighty dollars for twenty four needles, wheelchair place called a month ago, said they were going to pick her wheelchair up, she ended up paying for it, mobility limited due to decreased strength in legs after lower back injury after seizures, fell again recently, was coming back from bathroom, has a cane and walker, when legs go she is down, does not loose consciousness, has fallen and woke up on the floor but that is rare, one time was fixing a sandwich and woke up on the floor, started having the falls about two years ago, does not pass out every time, legs act like they are going to go out, lower back pain, right arm pain, leg pain in both legs, has been having to wear depends for a year, can't always control bowel movements and sometimes doesn't know had bowel movement, has a choking problem, chokes easily, chokes on liquid, not every time, Hayley Marin MD Attn: Accounting,[address] [facility], [place], [address], [place] [facility] 10/24/2024 19:02:57 OBGyn Episode Ob Episode Information Episode Created Date Number of Fetuses Patient Bloodtype Patient rh Status Prepregnancy Weight lbs Domestic Partner Domestic Partner Phone Father Name 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 Status 01/13/20 18 1 CLOSED Fetus Data First Name Last Name Admitted to NICU Weight (g) Sex Living Outcome Pediatric Complications Fetus ID Race Codes Race Delivery Type M Full Term [id number] Vaginal Ronak Calculation Initial Ronak Date Initial Exam Date Initial Exam Provider Initial Ultrasound Date Last Menstrual Period Date Ultra Sound Weeks Gestation 0 Eighteen To Twenty Week Ronak Update Ultra Sound Date Fundal Height At Umbil Quickening Date Ultra Sound Latest Weeks Gestation Final Ronak Confirmed By Final Ronak Confirmed Date Final Ronak Date Ultra Sound Latest Days Gestation 0 0 Menstrual History Last Menstrual Date Menses Monthly On Bcp Conception Prior Menses Frequency Hcg Plus Date Menarche Onset Age Delivery Information Delivery Date Delivery Type Labor Anesthesia Weeks Gestation Incision Type Labor Labor Length Hrs Delivered By Post Complications Tubal Sterilization Discharge Date Comments 7 General 40 false [facility] [place] Discharge Information Feeding Method Contraceptive Method Maternal HG B and HCT Levels Ob Episode Information Episode Created Date Number of Fetuses Patient Bloodtype Patient rh Status Prepregnancy Weight lbs Domestic Partner Domestic Partner Phone Father Name 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 Status 01/13/20 18 1 CLOSED Fetus Data First Name Last Name Admitted to NICU Weight (g) Sex Living Outcome Pediatric Complications Fetus ID Race Codes Race Delivery Type F Full Term [id number] Vaginal Ronak Calculation Initial Ronak Date Initial Exam Date Initial Exam Provider Initial Ultrasound Date Last Menstrual Period Date Ultra Sound Weeks Gestation 0 Eighteen To Twenty Week Ronak Update Ultra Sound Date Fundal Height At Umbil Quickening Date Ultra Sound Latest Weeks Gestation Final Ronak Confirmed By Final Ronak Confirmed Date Final Ronak Date Ultra Sound Latest Days Gestation 0 0 Menstrual History Last Menstrual Date Menses Monthly On Bcp Conception Prior Menses Frequency Hcg Plus Date Menarche Onset Age Delivery Information Delivery Date Delivery Type Labor Anesthesia Weeks Gestation Incision Type Labor Labor Length Hrs Delivered By Post Complications Tubal Sterilization Discharge Date Comments 4 General 40 false [facility] [place] Discharge Information Feeding Method Contraceptive Method Maternal HG B and HCT Levels
--- OUTSIDE RECORDS SUMMARY | 2024-12-04 20:34 | XMS_ITS | Clinical Summary ---
Author Organization [facility] Address [address] [place] [id number] Care Team Providers Care Mask Former Name Role Phone Fadi Mejia MD Primary Care Provider Social History Tobacco Use Types Packs/Day Years Used Date Smoking Tobacco: Never Assessed Comments Unknown Sex and Gender Information Value Date Recorded Sex Assigned at Not on file Legal Sex Female 7:57 PM CDT Gender Identity Not on file Sexual Orientation Not on file Plan of Treatment Health Maintenance Due Date Last Done Comments Colorectal Cancer Screening Colonoscopy (10 Years) 1956 Hepatitis C 1974 DTaP, Tdap and Td Vaccines ( 1 - Tdap) 1975 Mammogram Screening 1996 Zoster Vaccines (1 of 2) 2006 Dexa Scan (General) 2021 Pneumococcal Vaccine: 65+ Ye ars (1 of 1 - PCV) 2021 COVID-19 Vaccine ( - 2023-2 5 season) 2024 Influenza Adult (#1) 2024 RSV Immunization or 60+ Years (1 - 1-dose 75+ series) 2031 Meningococcal B Vaccine Aged Out No l onger eligible based on patient's age to complete this topic Meningococcal Vaccine Aged Out No garrison rafael eligible based on patient's age to complete this topic RSV Immunizations Under 20 Months Aged Out No longer eligible based on patient's age to complete this topic Care Teams Mask Former Relationship Specialty Start Date End Date Fadi Mejia MD PCP - General 09/08/14
--- NOTE | 2024-12-04 20:35 | ED.FEMALEGU ---
HPI - Female Genitourinary General Chief complaint: Urogenital-Female Stated complaint: BLADDER PAIN & HEMATURIA Time Seen by Provider: 12/04/24 20:15 History of Present Illness HPI Narrative: Patient presents with several days of suprapubic pain, dysuria, and now hematuria, feels like a UTI. Has no flank pain, she does have chronic low back pain. No fevers or chills, nausea vomiting. Related Data Home Medications ?Medication ?Instructions ?Recorded ?Confirmed ?Last Taken ?Type clopidogrel 75 mg tablet 75 mg PO DAILY 11/11/22 11/11/22 Unknown History docusate sodium 100 mg capsule 100 mg PO DAILY 11/11/22 11/11/22 Unknown History omeprazole 20 mg capsule,delayed 20 mg PO BID 11/11/22 11/11/22 Unknown History release pravastatin 40 mg tablet See Rx Instructions .Route .COMPLEX 11/11/22 11/11/22 Unknown History Allergies Allergy/AdvReac Type Severity Reaction Status Date / Time strawberry Allergy Unknown Verified 11/11/22 11:36 tramadol Allergy Unknown Verified 11/11/22 11:36 Review of Systems Review of Systems: All systems reviewed & are unremarkable except as noted in HPI and below PMFSH Past Medical History Medical History (Updated 12/04/24 @ 20:49 by Mara Bowers MD) Kidney tumor Anxiety Hx of deep venous thrombosis H/O irritable bowel syndrome mixed DM2 (diabetes mellitus, type 2) TIA (transient ischemic attack) Cataract Seizures Tobacco abuse HTN (hypertension) with goal to be determined Blind Surgical History Surgical History (Updated 11/11/22 @ 16:59 by Elsie Blum, YOUTH NUTRITIONAL MONITOR) H/O colonoscopy with polypectomy History of kidney surgery Family History Family History (Updated 11/11/22 @ 17:01 by Elsie Blum, YOUTH NUTRITIONAL MONITOR) Mother Hypertension Diabetes mellitus Acute myocardial infarction Father Acute myocardial infarction Kidney malignancy Son Acute myocardial infarction Diabetes mellitus Heart disease Daughter Deaf Social History Social History (Updated 11/11/22 @ 20:59 by Elsie Blum, YOUTH NUTRITIONAL MONITOR) Social History: 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 She is and has 2 children. She is Diabled. She continues to smoke approximately half a pack a cigarettes a day. Code status full code Smoking packs per day: 0.5 Smoking cigarettes per day: 10.0 Years smoked: 15 Smoking pack-years: 7.50 Smoking status: Light tobacco smoker Tobacco type: cigarettes Second hand tobacco smoke exposure: No Alcohol intake: never Substance use: never Lack of Transportation: No Lack of Food: Never True Current Housing: I Have Housing Concerned About Future Housing: No Difficulty Paying Gas/Electric Bills: No Difficulty Paying for Meds: No Currently Unemployed: No Education: Decline to Answer Difficulty w/ Childcare or Family Care: No Spiritual care concerns: No Exam Narrative: EXAMINATION OF ORGAN SYSTEMS/BODY AREAS: Constitutional: Vital signs per nursing GENERAL:[No acute distress, non-toxic appearing.] HEAD: Normal with no signs of head trauma. EYES: EOMI, conjunctiva normal ENT: Hearing grossly intact LUNGS: Nonlabored breathing. HEART: [Regular rate and rhythm] ABD: [Soft], some slight tenderness to suprapubic abdomen, no CVA tenderness EXT: Normal range of motion SKIN: [No rashes or lesions.] NEURO: [Alert and oriented x 3. No gross focal sensory or strength deficits.] PSYCH: Normal affect Course Vital Signs Vital signs: Vital Signs Temperature 98.1 F 12/04/24 20:04 Pulse Rate 101 H 12/04/24 20:04 Respiratory Rate 20 12/04/24 20:04 Blood Pressure 213/93 H 12/04/24 20:04 Pulse Oximetry 97 12/04/24 20:04 Oxygen Delivery Room Air 12/04/24 20:04 Temperature 98.1 F 12/04/24 20:04 Pulse Rate 94 12/04/24 21:00 Respiratory Rate 17 12/04/24 21:00 Blood Pressure 164/63 H 12/04/24 21:00 Pulse Oximetry 95 12/04/24 21:00 Oxygen Delivery Room Air 12/04/24 20:04 MDM - Female Genitourinary MDM Narrative Medical decision making narrative: [age] year-old patient presenting with suprapubic pain and urinary symptoms consistent with UTI. Urinalysis is obtained and positive for signs of infection. Urine culture sent. Based on patient's last urine culture, Patient started on Macrobid as she has no flank tenderness or signs of pyelonephritis, and strongly advised to return for any increasing or worsening pain, flank pain, fevers or vomiting. They expressed understanding of instructions and is discharged in stable condition. Lab Data Labs: Lab Results 12/04/24 Range/Units 20:14 Urine Color Yellow (Yellow) Urine Appearance Cloudy H (Clear) Urine pH 6.5 (5.0-9.0) Ur Specific [employer] 1.015 (1.001-1.035) Urine Protein 2+ H (Negative) mg/dL Urine Glucose (UA) 3+ H (Negative) mg/dL Urine Ketones Negative (Negative) mg/dL Ur Blood (Man) 3+ H (Negative) Urine Nitrate Positive H (Negative) Urine Bilirubin Negative (Negative) Urine Urobilinogen 1.0 (<2.0) mg/dL Leukocyte Esterase Rfl 1+ H (Negative) SHANNA/UL Urine RBC >100 H (0-2) /hpf Urine WBC >100 H (0-3) /hpf Ur Squamous Epith Cells None seen (Few) /hpf Urine Bacteria 4+ H /hpf Urine Casts 3-5 Discharge Plan Discharge Clinical Impression: Cystitis Patient Disposition: Home, Self-Care Condition: Stable Instructions: Antibiotic Form, Urinary Tract Infection in Women (ED) Additional Instructions: Please follow up with your doctor or the urologist; please take the medications as prescribed. Please come back to the hospital if you start having any severe pain, nausea or vomiting, fevers or chills, or if your symptoms don't get better the next few days. Patient Language: Israeli Prescriptions: New nitrofurantoin monohyd/m-cryst [Macrobid] 100 mg capsule 100 mg PO Q12H 7 Days Qty: 14 0RF Rx Instructions: must administer with a meal/food nitrofurantoin monohyd/m-cryst [Macrobid] 100 mg capsule 100 mg PO Q12H 7 Days Qty: 14 0RF Rx Instructions: must administer with a meal/food No Action pravastatin 40 mg tablet See Rx Instructions .ROUTE .COMPLEX Rx Instructions: 40 mg evening omeprazole 20 mg capsule,delayed release(DR/EC) 20 mg PO BID clopidogrel 75 mg tablet 75 mg PO DAILY docusate sodium 100 mg capsule 100 mg PO DAILY magnesium oxide 400 mg (241.3 mg magnesium) Tablet 400 mg PO QAM Qty: 30 0RF lisinopril 10 mg Tablet 10 mg PO DAILY Qty: 30 0RF cefdinir 300 mg Capsule 300 mg PO Q12HR Qty: 10 0RF metformin 500 mg tablet 500 mg PO TID Qty: 90 0RF Follow-up/Referrals: Gregory Iyer MD [Physician] - 3 Days PHYSICIAN NOT ON STAFF,NONSTAFF [Non-Staff] -
[2024-12-04 21:00] VITALS: BP 164/63; PULSE 94; RESP 17; O2SAT 95
[2024-12-04] MEDS: NITROFURANTOIN MONOHYD MACROCR 100 MG CAP PO (21:05)
== END 2024-12-04 21:30 | disposition home or self-care (01) ==
PROVIDERS: Emergency Provider Emergency Medicine
DX: N30.90 Cystitis, unspecified without hematuria (principal); I10 Essential (primary) hypertension; E11.9 Type 2 diabetes mellitus without complications; H26.9 Unspecified cataract; K58.2 Mixed irritable bowel syndrome; F17.210 Nicotine dependence, cigarettes, uncomplicated; Z86.718 Personal history of other venous thrombosis and embolism; Z86.73 Personal history of transient ischemic attack (TIA), and cerebral infarction without residual deficits; Z86.0100 Personal history of colon polyps, unspecified; Z79.02 Long term (current) use of antithrombotics/antiplatelets; Z79.84 Long term (current) use of oral hypoglycemic drugs; Z79.899 Other long term (current) drug therapy
CPT/HCPCS: 81001; 87086; 87186; 99283; A9270